=== PATIENT | male | born 1945 | race Caucasian/White ===

== ENCOUNTER 2016-04-13 10:50 | Inpatient (IN) | payer MEDICARE ==
[2016-04-13] VITALS (10 sets, daily range): BP systolic 165–214; BP diastolic 70–91; PULSE 56–60; RESP 14–20; TEMP 99.1–100.3; O2SAT 92–100
[~2016-04-13] VITALS: Ht 180.3 cm; Wt 73.6 kg
[~2016-04-13 10:50] MED LIST: AVOD0.5C PO; CELE200 PO; CELE200C PO; DEGA80IN SQ; DENO120P SQ; HYDR-2768 PO; LISI-515 PO; METF500T PO; OMEP20CA5 PO; STOO100C PO; URSO300C2 PO; VASO10TA8 PO
--- NOTE | 2016-04-13 11:07 | PD ---
HPI Chief Complaint: GI Complaint Time Seen by Provider: 11:06 Travel History International Travel<30 days: No Contact w/Intl Traveler<30days: No Traveled to known affect area: No History of Present Illness HPI 70-year-old male with history of DM, GERD, HTN, prostate cancer, diagnosed 2007 , s/p robotic prostatectomy 2008, currently on palliative Taxotere chemotherapy , followed by Dr. Biggs presents to the ED for evaluation of 5 day history of intractable nausea and vomiting. Patient endorses right lower quadrant abdominal pain at onset, denies abdominal pain on presentation. He went to his oncologist yesterday was given 500ml NS bolus and Zofran which improved his symptoms. However, upon waking today is unable to keep anything down. He estimates 4-5 episodes of nonbloody, nonbilious vomiting. Also complains of subjective fever and chills and mild shortness of breath. He denies chest pain , palpitations, cough, back pain, dysuria. Last bowel movement "3 or 4 days ago , well-formed, nonbloody, small." PFSH Past Medical History Cancer: Yes (PROSTATE) Cardiovascular Problems: No Chemotherapy: Yes Cerebrovascular Accident: Yes Diabetes: Yes (METFORMIN ) Patient Takes Glucophage: Yes Diminished Hearing: No Endocrine: No GERD: Yes Glaucoma: No Hepatitis: No Hiatal Hernia: No Hypertension: Yes Immune Disorder: No Medical other: Yes (ACID REFLUX,HX SHINGLES,AUGUST 2007,URINARY INCONTINENCE) Musculoskeletal: Yes (ARTHRITIS) Neurologic: No Psychiatric: No Reproductive: No Respiratory: No Radiation Therapy: Yes Thyroid Disease: No Influenza Vaccination: No Past Surgical History Abdominal Surgery: No AICD: No Cardiac Surgery: No Ear Surgery: No Endocrine Surgery: No Eye Surgery: No Genitourinary Surgery: Yes (LAPAROSCOPIC REMOVAL OF PROSTATE) Gynecologic Surgery: No Joint Replacement: No Oral Surgery: No Pacemaker: No Prostatectomy: Yes (10/06/07) Thoracic Surgery: No Other Surgery: Yes (05/02 RIGHT INGUINAL HERNIA REPAIR) Social History Alcohol Use: No (2 GLASSES WINE DAY) Tobacco Use: No Substance Use: No Allergies-Medications (Allergen,Severity, Reaction): Coded Allergies: Augmentin (Verified Allergy, Unknown, Nausea/Vomiting, 04/13/16) Reported Meds & Prescriptions Reported Meds & Active Scripts Active Reported Neulasta Inj (Pegfilgrastim) 6 Mg/0.6 Ml Inj 6 Mg SQ ONCE per chemotherapy cycle Cefuroxime (Cefuroxime Axetil) 500 Mg Tab 500 Mg PO BID Allergy Nasal [place] 24 Ho (Fluticasone Propionate (Nasal)) 50 Mcg/Act Spr 2 [place] D3 + K2 Dots 1000-90 Unit-Mcg (Vitamin D & K) 1 Tab Tab 2 Tab Morphine ER (Morphine Sulfate) 30 Mg Tab 30 Mg PO BID Livalo (Pitavastatin) 2 Mg Tab 2 Mg PO DAILY Celebrex (Celecoxib) 200 Mg Cap 200 Mg PO BID Metformin (Metformin HCl) 500 Mg Tab 500 Mg PO BIDPC With meals Firmagon Inj (Degarelix Inj) 80 Mg Inj 80 Mg SQ Q28D Lisinopril 20 Mg Tab 20 Mg PO BID PRN Dutasteride 0.5 Mg Cap 0.5 Mg PO DAILY Review of Systems Except as stated in HPI: all other systems reviewed are Neg Physical Exam Narrative GENERAL: Well-nourished, well-developed ill-appearing white male in no acute distress. SKIN: Warm and moist HEAD: Normocephalic. EYES: No scleral icterus. No injection or drainage. NECK: Supple, trachea midline. No JVD or lymphadenopathy. CARDIOVASCULAR: Regular rate and rhythm without murmurs, gallops, or rubs. 2+ DP and radial pulses bilaterally. RESPIRATORY: Breath sounds clear and equal bilaterally. No accessory muscle use. GASTROINTESTINAL: Abdomen soft, scaphoid, nondistended. Mildly, diffusely tender. No palpable masses. Active bowel sounds. MUSCULOSKELETAL: No cyanosis, or edema. Ambulatory. Moves the extremities spontaneously. BACK: Nontender without obvious deformity. No CVA tenderness. Data Data Last Documented VS Vital Signs Date Time Temp Pulse Resp B/P Pulse Ox O2 Delivery O2 Flow Rate FiO2 04/13/16 14:52 100.0 57 16 183/77 98 Room Air Orders Complete Blood Count With Diff (04/13/16 11:22) Comprehensive Metabolic Panel (04/13/16 11:22) Lipase (04/13/16 11:22) Lactic Acid (04/13/16 11:22) Prothrombin Time / Inr (Pt) (04/13/16 11:22) Act Partial Throm Time (Ptt) (04/13/16 11:22) Urinalysis - C+S If Indicated (04/13/16 11:22) Iv Access Insert/Monitor (04/13/16 11:22) Ecg Monitoring (04/13/16 11:22) Oximetry (04/13/16 11:22) Ondansetron Inj (Zofran Inj) (04/13/16 11:30) Sodium Chlor 0.9% 1000 Ml Inj (Ns 1000 M (04/13/16 11:22) Sodium Chloride 0.9% Flush (Ns Flush) (04/13/16 11:30) Blood Culture (04/13/16 11:22) Acetaminophen (Tylenol) (04/13/16 11:30) Blood Glucose (04/13/16 11:56) Ct Abd/Pel W Iv Contrast(Rout) (04/13/16 12:02) Morphine Inj (Morphine Inj) (04/13/16 12:15) Ondansetron Inj (Zofran Inj) (04/13/16 12:15) Chest, Single Ap (04/13/16 ) Sodium Chlor 0.9% 1000 Ml Inj (Ns 1000 M (04/13/16 12:30) Influenzae A/B Antigen (04/13/16 12:29) Promethazine Inj (Phenergan Inj) (04/13/16 12:30) Lisinopril (Prinivil) (04/13/16 12:30) Iohexol 350 Inj (Omnipaque 350 Inj) (04/13/16 13:21) ^ Straight Catheter (04/13/16 13:23) Vancomycin Inj (Vancomycin Inj) (04/13/16 14:00) Cefepime Inj (Maxipime Inj) (04/13/16 14:00) Admit To Inpatient (04/13/16 ) Code Status (04/13/16 14:46) Vital Signs (Adult) Q4H (04/13/16 14:46) Activity Oob With Assistance (04/13/16 14:46) Diet Regular Basic (04/13/16 Dinner) Sodium Chloride 0.9% Flush (Ns Flush) (04/13/16 15:00) Sodium Chloride 0.9% Flush (Ns Flush) (04/13/16 21:00) Acetaminophen (Tylenol) (04/13/16 15:00) Ondansetron Inj (Zofran Inj) (04/13/16 15:00) Bisacodyl Supp (Dulcolax Supp) (04/13/16 15:00) Magnesium Hydroxide Liq (Milk Of Magnesi (04/13/16 15:00) Electrocardiogram (04/13/16 14:46) Pt Request For Service (04/13/16 14:46) Enoxaparin Inj (Lovenox Inj) (04/13/16 15:00) Naloxone Inj (Narcan Inj) (04/13/16 15:00) Inpatient Certification (04/13/16 ) Celecoxib (Celebrex) (04/13/16 21:00) Lisinopril (Prinivil) (04/13/16 21:00) Metformin (Glucophage) (04/13/16 18:00) Morphine Sr (Oramorph Sr) (04/13/16 21:00) Pravastatin (Pravachol) (04/14/16 09:00) Finasteride (Proscar) (04/14/16 09:00) Vancomycin Inj (Vancomycin Inj) (04/14/16 02:00) Cefepime Inj (Maxipime Inj) (04/14/16 02:00) Consult Medical Oncology (04/13/16 ) Admit Order (Ed Use Only) (04/13/16 14:59) Labs Laboratory Tests Test 04/13/16 04/13/16 11:28 13:20 White Blood Count 31.4 TH/MM3 Red Blood Count 3.75 MIL/MM3 Hemoglobin 10.4 GM/DL Hematocrit 31.5 % Mean Corpuscular Volume 83.9 FL Mean Corpuscular Hemoglobin 27.8 PG Mean Corpuscular Hemoglobin 33.1 % Concent Red Cell Distribution Width 18.6 % Platelet Count 208 TH/MM3 Mean Platelet Volume 8.7 FL Neutrophils (%) (Auto) 92.7 % Lymphocytes (%) (Auto) 2.5 % Monocytes (%) (Auto) 4.6 % Eosinophils (%) (Auto) 0.0 % Basophils (%) (Auto) 0.2 % Neutrophils # (Auto) 29.1 TH/MM3 Lymphocytes # (Auto) 0.8 TH/MM3 Monocytes # (Auto) 1.5 TH/MM3 Eosinophils # (Auto) 0.0 TH/MM3 Basophils # (Auto) 0.1 TH/MM3 CBC Comment AUTO DIFF Differential Total Cells 100 Counted Neutrophils % (Manual) 71 % Band Neutrophils % 14 % Lymphocytes % 5 % Monocytes % 2 % Neutrophils # (Manual) 29.2 TH/MM3 Metamyelocytes 2 % Myelocytes 6 % Differential Comment FINAL DIFF MANUAL Toxic Granulation 1+ Platelet Estimate NORMAL Platelet Morphology Comment NORMAL Prothrombin Time 11.0 SEC Prothromb Time International 1.0 RATIO Ratio Activated Partial 24.3 SEC Thromboplast Time Sodium Level 137 MEQ/L Potassium Level 3.6 MEQ/L Chloride Level 102 MEQ/L Carbon Dioxide Level 24.4 MEQ/L Anion Gap 11 MEQ/L Blood Urea Nitrogen 20 MG/DL Creatinine 0.93 MG/DL Estimat Glomerular Filtration 80 ML/MIN Rate Random Glucose 115 MG/DL Lactic Acid Level 1.4 mmol/L Calcium Level 7.9 MG/DL Total Bilirubin 0.5 MG/DL Aspartate Amino Transf 20 U/L (AST/SGOT) Alanine Aminotransferase 17 U/L (ALT/SGPT) Alkaline Phosphatase 137 U/L Total Protein 6.4 GM/DL Albumin 3.4 GM/DL Lipase 62 U/L Urine Color YELLOW Urine Turbidity CLEAR Urine pH 7.5 Urine Specific [place] 1.014 Urine Protein NEG mg/dL Urine Glucose (UA) NEG mg/dL Urine Ketones 10 mg/dL Urine Occult Blood NEG Urine Nitrite NEG Urine Bilirubin NEG Urine Urobilinogen LESS THAN 2.0 MG/DL Urine Leukocyte Esterase NEG Urine RBC 1 /hpf Urine WBC 1 /hpf Microscopic Urinalysis Comment CULT NOT INDICATED MDM Medical Decision Making Medical Screen Exam Complete: Yes Emergency Medical Condition: Yes Differential Diagnosis Pneumonia versus UTI versus appendicitis versus bowel obstruction versus metastatic cancer versus dehydration versus electrolyte abnormality versus other Narrative Course 70-year-old male with history of DM, GERD, HTN, metastatic prostate cancer, diagnosed 2007, s/p robotic prostatectomy 2008, currently on palliative Taxotere chemotherapy, followed by Dr. Biggs presents to the ED for evaluation of 5 day history of intractable nausea and vomiting. Patient endorses right lower quadrant abdominal pain at onset, denies abdominal pain on presentation. He went to his oncologist yesterday was given 500ml NS bolus and Zofran which improved his symptoms. However, upon waking today is unable to keep anything down. He estimates 4-5 episodes of nonbloody, nonbilious vomiting today. Also complains of subjective fever and chills and mild shortness of breath. He denies chest pain, palpitations, cough, back pain, dysuria. Last bowel movement "3 or 4 days ago, well-formed, nonbloody, small." Vitals reviewed. Temp 99.2, pulse 60, BP 187/72 on presentation. Skull exam reveals an ill-appearing white male in no acute distress. Skin is warm and moist. Chest is clear to auscultation bilaterally. Abdomen soft, scaphoid, nondistended. Mild diffusely, mildly tender. Active bowel sounds. No CVA tenderness. No lower extremity edema. IV was established. Patient was placed on continuous monitoring. He was administered fluid bolus of normal saline, Zofran, morphine. 20 mg lisinopril by mouth administered. CBC: WBC 31.4. 92.7% neutrophils. Hgb 10.4. HCT 31.5. INR: 1.0. CMP: BUN 20, creatinine 0.93. Lactic 1.4 Flu swab: Negative UA: No culture indicated. CXR: multiple sclerotic bone lesions, highly suggestive of metastatic disease. CT of abdomen/pelvis: Multiple sclerotic bone lesions, small liver lesions, unable to be characterized. No acute abnormality, per radiology read. Patient was administered vancomycin and cefepime. Spoke with Dr. Torres who agrees to accept the patient to medical service. Consult placed with oncology. Please see medicine and oncology notes for disposition. Sepsis Criteria SIRS Criteria (2 or more): WBC > 55583, < 4000 or > 10% bands Diagnosis Primary Impression: Prostate cancer metastatic to bone Additional Impressions: Leukocytosis Qualified Code: D72.829 - Leukocytosis, unspecified type Intractable nausea and vomiting Qualified Code: R11.2 - Intractable vomiting with nausea, unspecified vomiting type [place] Ontiveros Apr 13, 2016 11:06
[2016-04-13] MEDS ORDERED: D3 +TAB PO (11:13)
[2016-04-13] MEDS ORDERED: CEFU1TAB20 PO (11:13)
[2016-04-13] MEDS ORDERED: LISI-515 PO (11:13)
[2016-04-13] MEDS ORDERED: FLUT1SPR22 (11:13)
[2016-04-13] MEDS ORDERED: METF500T PO (11:13)
[2016-04-13] MEDS ORDERED: DEGA80IN SQ (11:13)
[2016-04-13] MEDS ORDERED: DUTA1CAP2 PO (11:13)
[2016-04-13] MEDS ORDERED: LIVA2TAB PO (11:13)
[2016-04-13] MEDS ORDERED: MORP1TAB25 PO (11:13)
[2016-04-13] MEDS ORDERED: PEGF6P SQ (11:13)
[2016-04-13] MEDS ORDERED: CELE200C PO (11:13)
[2016-04-13] MEDS ORDERED: SODIUM CHLOR 0.9% 1000 ML INJ 1,000 ML IV SCH (11:22)
[2016-04-13] MEDS ORDERED: SODIUM CHLORIDE 0.9% FLUSH 5 ML FLUSH IVF PRN (11:30)
[2016-04-13] MEDS ORDERED: ONDANSETRON HCL 4 MG/2 ML VIAL IVP ONE (11:30)
[2016-04-13] MEDS ORDERED: ACETAMINOPHEN 325 MG TAB PO ONE (11:30)
[2016-04-13 11:53] LABS: AUTOMATED NEUTROPHIL # 29.1 TH/MM3 (1.8-7.7); BASOPHIL # 0.1 TH/MM3 (0-0.2); BASOPHIL % 0.2 % (0.0-2.0); HEMATOCRIT 31.5 % (39.0-51.0); LYMPH % 2.5 % (9.0-44.0); LYMPHOCYTE # 0.8 TH/MM3 (1.0-4.8); MEAN CELL VOLUME 83.9 FL (80.0-100.0); MEAN CORPUSCULAR HEMOGLOBIN 27.8 PG (27.0-34.0); MEAN CORPUSCULAR HGB CONC 33.1 % (32.0-36.0); MONO % 4.6 % (0.0-8.0); NEUT % 92.7 % (16.0-70.0); PLATELET COUNT 208 TH/MM3 (150-450); RED BLOOD COUNT 3.75 MIL/MM3 (4.50-5.90); RED CELL DISTRIBUTION WIDTH 18.6 % (11.6-17.2); WHITE BLOOD COUNT 31.4 TH/MM3 (4.0-11.0)
[2016-04-13 11:56] LABS: HEMO FLAGS AUTO DIFF
[2016-04-13 12:03] LABS: APTT (PATIENT) 24.3 SEC (24.3-30.1)
[2016-04-13] MEDS ORDERED: ONDANSETRON HCL 4 MG/2 ML VIAL IV PUSH ONE (12:15)
[2016-04-13] MEDS ORDERED: MORPHINE SULFATE 4 MG/ML INJ IV PUSH ONE (12:15)
[2016-04-13 12:26] LABS: ALKALINE PHOSPHATASE 137 U/L (45-117); ALT (GPT) 17 U/L (12-78); ANION GAP 11 MEQ/L (5-15); AST (GOT) 20 U/L (15-37); BANDS 14 % (0-6); BICARBONATE 24.4 MEQ/L (21.0-32.0); BLOOD UREA NITROGEN 20 MG/DL (7-18); CHLORIDE 102 MEQ/L (98-107); GLOMERULAR FILTRATION RATE 80 ML/MIN (>89); METAMYELOCYTES 2 % (0-1); MYELOCYTES 6 % (0-0); NEUTROPHIL # MANUAL DIFF 29.2 TH/MM3 (1.8-7.7); PLATELET ESTIMATE SMEAR NORMAL (NORMAL); PLATELET MORPHOLOGY NORMAL (NORMAL); POLYS (SEG NEUTROPHILS) 71 % (16-70); POTASSIUM 3.6 MEQ/L (3.5-5.1); SCAN/DIFF FINAL DIFF MANUAL; SODIUM (NA) 137 MEQ/L (136-145); TOTAL BILIRUBIN ADULT 0.5 MG/DL (0.2-1.0); TOXIC GRANULATION 1+ (NORMAL); WBC DIFF SAMPLE 100
[2016-04-13] MEDS ORDERED: PROMETHAZINE INJ 25 MG/ML VIAL IM ONE (12:30)
[2016-04-13] MEDS ORDERED: LISINOPRIL 20 MG TAB PO ONE (12:30)
[2016-04-13] MEDS ORDERED: SODIUM CHLOR 0.9% 1000 ML INJ 1,000 ML IV ONE (12:30)
--- NOTE | 2016-04-13 12:45 | PD ---
Physical Exam Narrative I, Dr. Arnett, have reviewed the advance practice practitioner's documentation and am in agreement, met with the patient face to face, made the diagnosis, and the medical decision making was done by me. *My assessment and Findings: Patient is a 70-year-old male with history of prostate cancer, currently on chemotherapy, who comes in complaining of nausea and vomiting. He says this is been going on since . He says on he had some right lower quadrant tenderness, but has not had any abdominal pain since then. He says he is unable to keep anything down. He has had fevers, but denies any specific symptoms such as cough. Exam shows abdomen to be soft and nontender. Lungs are clear to auscultation. Data Data Last Documented VS Vital Signs Date Time Temp Pulse Resp B/P Pulse Ox O2 Delivery O2 Flow Rate FiO2 04/13/16 14:52 100.0 57 16 183/77 98 Room Air Orders Complete Blood Count With Diff (04/13/16 11:22) Comprehensive Metabolic Panel (04/13/16 11:22) Lipase (04/13/16 11:22) Lactic Acid (04/13/16 11:22) Prothrombin Time / Inr (Pt) (04/13/16 11:22) Act Partial Throm Time (Ptt) (04/13/16 11:22) Urinalysis - C+S If Indicated (04/13/16 11:22) Iv Access Insert/Monitor (04/13/16 11:22) Ecg Monitoring (04/13/16 11:22) Oximetry (04/13/16 11:22) Ondansetron Inj (Zofran Inj) (04/13/16 11:30) Sodium Chlor 0.9% 1000 Ml Inj (Ns 1000 M (04/13/16 11:22) Sodium Chloride 0.9% Flush (Ns Flush) (04/13/16 11:30) Blood Culture (04/13/16 11:22) Acetaminophen (Tylenol) (04/13/16 11:30) Blood Glucose (04/13/16 11:56) Ct Abd/Pel W Iv Contrast(Rout) (04/13/16 12:02) Morphine Inj (Morphine Inj) (04/13/16 12:15) Ondansetron Inj (Zofran Inj) (04/13/16 12:15) Chest, Single Ap (04/13/16 ) Sodium Chlor 0.9% 1000 Ml Inj (Ns 1000 M (04/13/16 12:30) Influenzae A/B Antigen (04/13/16 12:29) Promethazine Inj (Phenergan Inj) (04/13/16 12:30) Lisinopril (Prinivil) (04/13/16 12:30) Iohexol 350 Inj (Omnipaque 350 Inj) (04/13/16 13:21) ^ Straight Catheter (04/13/16 13:23) Vancomycin Inj (Vancomycin Inj) (04/13/16 14:00) Cefepime Inj (Maxipime Inj) (04/13/16 14:00) Admit To Inpatient (04/13/16 ) Code Status (04/13/16 14:46) Vital Signs (Adult) Q4H (04/13/16 14:46) Activity Oob With Assistance (04/13/16 14:46) Diet Regular Basic (04/13/16 Dinner) Sodium Chloride 0.9% Flush (Ns Flush) (04/13/16 15:00) Sodium Chloride 0.9% Flush (Ns Flush) (04/13/16 21:00) Acetaminophen (Tylenol) (04/13/16 15:00) Ondansetron Inj (Zofran Inj) (04/13/16 15:00) Bisacodyl Supp (Dulcolax Supp) (04/13/16 15:00) Magnesium Hydroxide Liq (Milk Of Magnesi (04/13/16 15:00) Electrocardiogram (04/13/16 14:46) Pt Request For Service (04/13/16 14:46) Enoxaparin Inj (Lovenox Inj) (04/13/16 15:00) Naloxone Inj (Narcan Inj) (04/13/16 15:00) Inpatient Certification (04/13/16 ) Celecoxib (Celebrex) (04/13/16 21:00) Lisinopril (Prinivil) (04/13/16 21:00) Metformin (Glucophage) (04/13/16 18:00) Morphine Sr (Oramorph Sr) (04/13/16 21:00) Pravastatin (Pravachol) (04/14/16 09:00) Finasteride (Proscar) (04/14/16 09:00) Vancomycin Inj (Vancomycin Inj) (04/14/16 02:00) Cefepime Inj (Maxipime Inj) (04/14/16 02:00) Consult Medical Oncology (04/13/16 ) Admit Order (Ed Use Only) (04/13/16 14:59) Labs Laboratory Tests Test 04/13/16 04/13/16 11:28 13:20 White Blood Count 31.4 TH/MM3 Red Blood Count 3.75 MIL/MM3 Hemoglobin 10.4 GM/DL Hematocrit 31.5 % Mean Corpuscular Volume 83.9 FL Mean Corpuscular Hemoglobin 27.8 PG Mean Corpuscular Hemoglobin 33.1 % Concent Red Cell Distribution Width 18.6 % Platelet Count 208 TH/MM3 Mean Platelet Volume 8.7 FL Neutrophils (%) (Auto) 92.7 % Lymphocytes (%) (Auto) 2.5 % Monocytes (%) (Auto) 4.6 % Eosinophils (%) (Auto) 0.0 % Basophils (%) (Auto) 0.2 % Neutrophils # (Auto) 29.1 TH/MM3 Lymphocytes # (Auto) 0.8 TH/MM3 Monocytes # (Auto) 1.5 TH/MM3 Eosinophils # (Auto) 0.0 TH/MM3 Basophils # (Auto) 0.1 TH/MM3 CBC Comment AUTO DIFF Differential Total Cells 100 Counted Neutrophils % (Manual) 71 % Band Neutrophils % 14 % Lymphocytes % 5 % Monocytes % 2 % Neutrophils # (Manual) 29.2 TH/MM3 Metamyelocytes 2 % Myelocytes 6 % Differential Comment FINAL DIFF MANUAL Toxic Granulation 1+ Platelet Estimate NORMAL Platelet Morphology Comment NORMAL Prothrombin Time 11.0 SEC Prothromb Time International 1.0 RATIO Ratio Activated Partial 24.3 SEC Thromboplast Time Sodium Level 137 MEQ/L Potassium Level 3.6 MEQ/L Chloride Level 102 MEQ/L Carbon Dioxide Level 24.4 MEQ/L Anion Gap 11 MEQ/L Blood Urea Nitrogen 20 MG/DL Creatinine 0.93 MG/DL Estimat Glomerular Filtration 80 ML/MIN Rate Random Glucose 115 MG/DL Lactic Acid Level 1.4 mmol/L Calcium Level 7.9 MG/DL Total Bilirubin 0.5 MG/DL Aspartate Amino Transf 20 U/L (AST/SGOT) Alanine Aminotransferase 17 U/L (ALT/SGPT) Alkaline Phosphatase 137 U/L Total Protein 6.4 GM/DL Albumin 3.4 GM/DL Lipase 62 U/L Urine Color YELLOW Urine Turbidity CLEAR Urine pH 7.5 Urine Specific [place] 1.014 Urine Protein NEG mg/dL Urine Glucose (UA) NEG mg/dL Urine Ketones 10 mg/dL Urine Occult Blood NEG Urine Nitrite NEG Urine Bilirubin NEG Urine Urobilinogen LESS THAN 2.0 MG/DL Urine Leukocyte Esterase NEG Urine RBC 1 /hpf Urine WBC 1 /hpf Microscopic Urinalysis Comment CULT NOT INDICATED [facility] [place] Supervised Visit with ROBERT: Yes Narrative Course Labs show an elevated WBC count. Patient covered with broad spectrum antibiotics. CXR and urinalysis negative for infective process. CT abd/pelvis show no acute abnormalities. Patient admitted for further management. Admitting Information Admitting Physician Requests: it Maria Elena Arnett MD Apr 13, 2016 12:45
[2016-04-13] MEDS ORDERED: IOHEXOL 350 MG/ML 10 ML VIAL (for RAD DIAG) IV ONE (13:21)
--- NOTE | 2016-04-13 13:39 | RADRPT ---
EXAM DATE/TIME: 04/13/2016 13:00 [facility] COMPARISON: No previous studies available for comparison. INDICATIONS : Abdomen pain, nausea. IV CONTRAST: 70 cc Omnipaque 350 (iohexol) IV ORAL CONTRAST: No oral contrast ingested. RADIATION DOSE: 13.55 CTDIvol (mGy) MEDICAL HISTORY : Cerebrovascular disease. Hypertension. Diabetes mellitus type 2.prostate cancer SURGICAL HISTORY : Inguinal hernia repair. ENCOUNTER: Initial ACUITY: 1 day PAIN SCALE: 5/10 LOCATION: abdomen TECHNIQUE: Volumetric scanning of the abdomen and pelvis was performed. Using automated exposure control and ad justment of the mA and/or kV according to patient size, radiation dose was kept as low as reasonably achievable to obtain optimal diagnostic quality images. FINDINGS: LOWER LUNGS: The visualized lower lungs are clear. LIVER: Homogeneous density with approximately 4 low-density lesions that are too small to characterize and m easure up to 5 mm. There is no dilation of the biliary tree. No calcified gallstones. SPLEEN: Spleen measures 13.2 cm. No focal lesion is visualized. PANCREAS: Within normal limits. KIDNEYS: Normal in size and shape. There is no mass, stone or hydronephrosis. ADRENAL GLANDS: Within normal limits. VASCULAR: There is no aortic aneurysm. There is moderate atherosclerotic disease. BOWEL/MESENTERY: The stomach, small bowel, and colon demonstrate no acute abnormality. There is no free intraperitone al air or fluid. Appendix is normal. ABDOMINAL WALL: There is a fat containing umbilical hernia. RETROPERITONEUM: There is no lymphadenopathy. BLADDER: No wall thickening or mass. REPRODUCTIVE: Prostate gland is surgically absent. INGUINAL: There is no lymphadenopathy or hernia. MUSCULOSKELETAL: There are innumerable as chronic lesions throughout the visualized ribs, vertebral bodies, and pelvic bones. CONCLUSION: 1. There are innumerable sclerotic lesions throughout the visualized bones diagnostic of metastatic d isease. 2. No other acute finding is identified. There are least 4 low-density lesions in the liver that are too small to characterize. Ravi Garvin MD on April 13, 2016 at 13:34 Board Certified Radiologist. This report was verified electronically.
--- NOTE | 2016-04-13 13:47 | RADRPT ---
EXAM DATE/TIME: 04/13/2016 12:35 [facility] COMPARISON: CT ABDOMEN & PELVIS W CONTRAST, April 13, 2016, 13:00. INDICATIONS : Patient complains of vomiting and shortness of breath. MEDICAL HISTORY : Carcinoma, prostatic. SURGICAL HISTORY : Infusaport. ENCOUNTER: Initial ACUITY: 1 day PAIN SCORE: 0/10 LOCATION: chest FINDINGS: Portable AP view of the chest demonstrates a normal-sized cardiac silhouette. Right chest wall Infuse -a-Port is present with distal tip in the screw vena cava. No effusion, consolidation, or pneumothora x is visualized. There are areas of increased density associated with the ribs bilaterally. There is degenerative change at the glenohumeral joints bilaterally. CONCLUSION: 1. No acute cardiopulmonary abnormality is identified. 2. Multiple sclerotic bone lesions in the ribs bilaterally strongly suggestive of metastatic disease from the patient's prostate cancer. Ravi Garvin MD on April 13, 2016 at 13:44 Board Certified Radiologist. This report was verified electronically.
[2016-04-13 13:58] LABS: BLOOD, URINE NEG (NEG); COMMENT (UR) CULT NOT INDICATED; CULTURE IF INDICATED CULT NOT INDICATED; GLUCOSE,URINE NEG (NEG); KETONE, URINE 10 mg/dL (NEG); NITRITE,URINE NEG (NEG); PH, URINE 7.5 (5.0-8.5); URINE COLOR YELLOW (YELLW/STRAW)
[2016-04-13] MEDS ORDERED: VANCOMYCIN INJ 1,000 MG in SODIUM CHLOR 0.9% 250 ML INJ 250 ML IV ONE (14:00)
[2016-04-13] MEDS ORDERED: CEFEPIME INJ 2,000 MG in SODIUM CHLORIDE 0.9% INJ 100 ML IV ONE (14:00)
[2016-04-13] MEDS ORDERED: SODIUM CHLORIDE 0.9% FLUSH 5 ML FLUSH FLUSH PRN (15:00)
[2016-04-13] MEDS ORDERED: ACETAMINOPHEN 325 MG TAB PO PRN ×2 (15:00→22:00)
[2016-04-13] MEDS ORDERED: BISACODYL 10 MG SUPP PR PRN (15:00)
[2016-04-13] MEDS ORDERED: NALOXONE HCL 0.4 MG/ML AMP IV PRN (15:00)
[2016-04-13] MEDS: ENOXAPARIN SODIUM 30 MG/0.3 ML SYRINGE SQ SCH (15:19)
[2016-04-13] MEDS ORDERED: metFORMIN HCL 500 MG TAB PO SCH (18:00)
[2016-04-13] MEDS ORDERED: cloNIDine HCL 0.2 MG TAB PO PRN (18:15)
[2016-04-13] MEDS ORDERED: ENALAPRILAT 1.25 MG/ML VIAL IV PRN (18:15)
[2016-04-13] MEDS: NIFEdipine 60 MG SUSTAINED RELEASE TAB PO SCH (18:59)
[2016-04-13] MEDS ORDERED: DEXTROSE 50% IN WATER 50 ML VIAL(D50) IV PUSH PRN (19:00)
[2016-04-13] MEDS ORDERED: GLUCAGON 1 MG/ML VIAL OTHER PRN (19:00)
[2016-04-13] MEDS: MORPHINE SULFATE 30 MG CONTROLLED RELEASE TAB PO SCH (20:04)
[2016-04-13] MEDS: CELECOXIB 200 MG CAP PO SCH (20:04)
[2016-04-13] MEDS: LISINOPRIL 20 MG TAB PO SCH (20:04)
[2016-04-13] MEDS: SODIUM CHLORIDE 0.9% FLUSH 5 ML FLUSH FLUSH SCH (20:05)
[2016-04-13] MEDS: INSULIN ASPART SUPPLEMENTAL SCALE SQ SCH (20:05)
--- NOTE | 2016-04-13 21:43 | HHI.HP ---
HPI Service [facility] Hospitalists Primary Care Physician Yareli Resendiz MD Admission Diagnosis metastatic prostate Ca,intractable nausea and vomiting, leukocytosis Chief Complaint: fever Travel History International Travel<30 Days: No Contact w/Intl Traveler <30 Da: No Traveled to Known Affected Are: No Sepsis Criteria Sepsis Criteria (SIRS+source): Infect source susp/known History of Present Illness 70-year-old male with history of DM, GERD, HTN, prostate cancer, diagnosed 2007 , s/p robotic prostatectomy 2008, currently on palliative Taxotere chemotherapy , followed by Dr. Biggs presents to the ED for evaluation of 5 day history of intractable nausea and vomiting. Patient endorses right lower quadrant abdominal pain at onset, denies abdominal pain on presentation. He went to his oncologist yesterday was given 500ml NS bolus and Zofran which improved his symptoms. However, upon waking today is unable to keep anything down. He estimates 4-5 episodes of nonbloody, nonbilious vomiting. Also complains of subjective fever and chills and mild shortness of breath. He denies chest pain , palpitations, cough, back pain, dysuria. Last bowel movement "3 or 4 days ago , well-formed, nonbloody, small." Review of Systems Constitutional: DENIES: Diaphoretic episodes, Fatigue, Fever, Weight gain, Weight loss, Chills, Dizziness, Change in appetite, Night Sweats Endocrine: DENIES: Heat/cold intolerance, Polydipsia, Polyuria, Polyphagia Eyes: DENIES: Blurred vision, Diplopia, Eye inflammation, Eye pain, Vision loss , Photosensitivity, Double Vision Ears, nose, mouth, throat: DENIES: Tinnitus, Hearing loss, Vertigo, Nasal discharge, Oral lesions, Throat pain, Hoarseness, Ear Pain, Running Nose, Epistaxis, Sinus Pain, Toothache, Odynophagia Respiratory: DENIES: Apneas, Cough, Snoring, Wheezing, Hemoptysis, Sputum production, Shortness of breath Cardiovascular: DENIES: Chest pain, Palpitations, Syncope, Dyspnea on Exertion , PND, Lower Extremity Edema, Orthopnea, Claudication Gastrointestinal: COMPLAINS OF: Nausea, Vomiting, DENIES: Abdominal pain, Black stools, Bloody stools, BRB per rectum, Constipation, Diarrhea, GERD, Reflux, Difficulty Swallowing, Anorexia, See HPI Genitourinary: DENIES: Urinary frequency, Urinary incontinence, Urgency, Hematuria, Dysuria, Nocturia Musculoskeletal: DENIES: Joint pain, Muscle aches, Stiffness, Joint Swelling, Back pain, Neck pain Integumentary: DENIES: Abnormal pigmentation, Nail changes, Pruritus, Rash Hematologic/lymphatic: DENIES: Bruising, Lymphadenopathy Immunologic/allergic: DENIES: Eczema, Urticaria Neurologic: DENIES: Abnormal gait, Headache, Localized weakness, Paresthesias, Seizures, Speech Problems, Tremor, Poor Balance Psychiatric: DENIES: Anxiety, Confusion, Mood changes, Depression, Hallucinations, Agitation, Suicidal Ideation, Homicidal Ideation, Delusions, History of Bipolar, History of Schizophrenia Past Family Social History Past Medical History 1) prostate cancer diagnosed in 2007 - Status post robotic prostatectomy - Patient follows with 2) type 2 diabetes 3) osteoarthritis 4) GERD 5) hemorrhoids 6) hypertension Past Surgical History 1) bilateral inguinal hernia repair 2) colonoscopy in 2011 3) prostate resection Reported Medications Reported Meds & Active Scripts Active Reported Neulasta Inj (Pegfilgrastim) 6 Mg/0.6 Ml Inj 6 Mg SQ ONCE per chemotherapy cycle Cefuroxime (Cefuroxime Axetil) 500 Mg Tab 500 Mg PO BID Allergy Nasal Novinger 24 Ho (Fluticasone Propionate (Nasal)) 50 Mcg/Act Spr 2 Novinger D3 + K2 Dots 1000-90 Unit-Mcg (Vitamin D & K) 1 Tab Tab 2 Tab Morphine ER (Morphine Sulfate) 30 Mg Tab 30 Mg PO BID Livalo (Pitavastatin) 2 Mg Tab 2 Mg PO DAILY Celebrex (Celecoxib) 200 Mg Cap 200 Mg PO BID Metformin (Metformin HCl) 500 Mg Tab 500 Mg PO BIDPC With meals Firmagon Inj (Degarelix Inj) 80 Mg Inj 80 Mg SQ Q28D Lisinopril 20 Mg Tab 20 Mg PO BID PRN Dutasteride 0.5 Mg Cap 0.5 Mg PO DAILY Allergies: Coded Allergies: Augmentin (Verified Allergy, Unknown, Nausea/Vomiting, 04/13/16) Family History Non-contributory Social History - Patient denies tobacco use -2 glasses of wine daily - patient denies illicit street drugs Physical Exam Vital Signs Vital Signs Date Time Temp Pulse Resp B/P Pulse Ox O2 Delivery O2 Flow Rate FiO2 04/13/16 20:00 100.3 60 20 165/70 94 04/13/16 16:33 56 14 188/89 95 Room Air 04/13/16 14:52 100.0 57 16 183/77 98 Room Air 04/13/16 13:35 99.3 04/13/16 13:24 100.1 57 20 212/91 97 Room Air 04/13/16 13:20 56 16 214/88 98 Room Air 04/13/16 12:20 100.1 57 16 212/91 97 Room Air 04/13/16 11:28 100 Room Air 04/13/16 10:56 99.1 56 18 185/84 99 04/13/16 10:52 99.2 60 20 187/72 92 Room Air Physical Exam GENERAL: This is a well-nourished, well-developed patient, in no apparent distress. SKIN: No rashes, ecchymoses or lesions. Cool and dry. HEAD: Atraumatic. Normocephalic. No temporal or scalp tenderness. EYES: Pupils equal round and reactive. Extraocular motions intact. No scleral icterus. No injection or drainage. ENT: Nose without bleeding, purulent drainage or septal hematoma. Throat without erythema, tonsillar hypertrophy or exudate. Uvula midline. Airway patent. NECK: Trachea midline. No JVD or lymphadenopathy. Supple, nontender, no meningeal signs. CARDIOVASCULAR: Regular rate and rhythm without murmurs, gallops, or rubs. RESPIRATORY: Clear to auscultation. Breath sounds equal bilaterally. No wheezes , rales, or rhonchi. GASTROINTESTINAL: Abdomen soft, non-tender, nondistended. No hepato-splenomegaly , or palpable masses. No guarding. MUSCULOSKELETAL: Extremities without clubbing, cyanosis, or edema. No joint tenderness, effusion, or edema noted. No calf tenderness. Negative Homans sign bilaterally. NEUROLOGICAL: Awake and alert. Cranial nerves II through XII intact. Motor and sensory grossly within normal limits. Five out of 5 muscle strength in all muscle groups. Normal speech. Laboratory Laboratory Tests Test 04/13/16 04/13/16 11:28 13:20 White Blood Count 31.4 Red Blood Count 3.75 Hemoglobin 10.4 Hematocrit 31.5 Mean Corpuscular Volume 83.9 Mean Corpuscular Hemoglobin 27.8 Mean Corpuscular Hemoglobin 33.1 Concent Red Cell Distribution Width 18.6 Platelet Count 208 Mean Platelet Volume 8.7 Neutrophils (%) (Auto) 92.7 Lymphocytes (%) (Auto) 2.5 Monocytes (%) (Auto) 4.6 Eosinophils (%) (Auto) 0.0 Basophils (%) (Auto) 0.2 Neutrophils # (Auto) 29.1 Lymphocytes # (Auto) 0.8 Monocytes # (Auto) 1.5 Eosinophils # (Auto) 0.0 Basophils # (Auto) 0.1 CBC Comment AUTO DIFF Differential Total Cells 100 Counted Neutrophils % (Manual) 71 Band Neutrophils % 14 Lymphocytes % 5 Monocytes % 2 Neutrophils # (Manual) 29.2 Metamyelocytes 2 Myelocytes 6 Differential Comment FINAL DIFF MANUAL Toxic Granulation 1+ Platelet Estimate NORMAL Platelet Morphology Comment NORMAL Prothrombin Time 11.0 Prothromb Time International 1.0 Ratio Activated Partial 24.3 Thromboplast Time Sodium Level 137 Potassium Level 3.6 Chloride Level 102 Carbon Dioxide Level 24.4 Anion Gap 11 Blood Urea Nitrogen 20 Creatinine 0.93 Estimat Glomerular Filtration 80 Rate Random Glucose 115 Lactic Acid Level 1.4 Calcium Level 7.9 Total Bilirubin 0.5 Aspartate Amino Transf 20 (AST/SGOT) Alanine Aminotransferase 17 (ALT/SGPT) Alkaline Phosphatase 137 Total Protein 6.4 Albumin 3.4 Lipase 62 Urine Color YELLOW Urine Turbidity CLEAR Urine pH 7.5 Urine Specific [place] 1.014 Urine Protein NEG Urine Glucose (UA) NEG Urine Ketones 10 Urine Occult Blood NEG Urine Nitrite NEG Urine Bilirubin NEG Urine Urobilinogen LESS THAN 2.0 Urine Leukocyte Esterase NEG Urine RBC 1 Urine WBC 1 Microscopic Urinalysis Comment CULT NOT INDICATED Date/Time Procedure Status Source Growth 04/13/16 12:44 Influenza Types A,B Antigen (GEE) - Final Complete Nasal Washing NEGATIVE FOR FLU A AND B ANTIGEN.... 04/13/16 11:28 Aerobic Blood Culture Received Blood Line Pending 04/13/16 11:28 Anaerobic Blood Culture Received Blood Line Pending Result Diagram: 04/13/16 1128 04/13/16 1128 Imaging Last Impressions Abdomen/Pelvis CT 04/13/16 1202 Signed Impressions: Service Date/Time: Wednesday, April 13, 2016 13:00 - CONCLUSION: 1. There are innumerable sclerotic lesions throughout the visualized bones diagnostic of metastatic disease. 2. No other acute finding is identified. There are least 4 low-density lesions in the liver that are too small to characterize. Ravi Garvin MD Chest X-Ray 04/13/16 0000 Signed Impressions: Service Date/Time: Wednesday, April 13, 2016 12:35 - CONCLUSION: 1. No acute cardiopulmonary abnormality is identified. 2. Multiple sclerotic bone lesions in the ribs bilaterally strongly suggestive of metastatic disease from the patient's prostate cancer. Ravi Garvin MD Septic Shock Reassessment Heart: Regular rate and rhythm Lungs: Clear Skin: Warm Peripheral Pulses: Bounding Right Radial Bounding Left Radial Bounding Right Popliteal Bounding Left Popliteal Bounding Right Dorsalis Pedis Bounding Left Dorsalis Pedis Bounding Right Posterior Tibial Bounding Left Posterior Tibial Capillary Refill: Brisk Assessment and Plan Problem List: (1) Intractable nausea and vomiting Status: Acute Plan: - IV zofran - IVFs - pre-reanal azotemia now resolved - observe (2) Leukocytosis Status: Acute Plan: - afebrile since 8PM 04/13 - influenza negative - blood cultures (04/13/16) --> NO growth to date - continue vancomycin and cefepime for now. (3) Prostate cancer metastatic to bone Status: Acute Plan: - Pt follows with Dr. Das. Physician Certification 2 Midnight Certification Type: Admission for Inpatient Services Order for Inpatient Services The services are ordered in accordance with Medicare regulations or non- Medicare payer requirements, as applicable. In the case of services not specified as inpatient-only, they are appropriately provided as inpatient services in accordance with the 2-midnight benchmark. Estimated LOS (days): 3 3 days is the estimated time the patient will need to remain in the hospital, assuming treatment plan goals are met and no additional complications. Post-Hospital Plan: Not yet determined Problem Qualifiers (1) Intractable nausea and vomiting: Qualified Code: R11.2 - Intractable vomiting with nausea, unspecified vomiting type (2) Leukocytosis: Qualified Code: D72.829 - Leukocytosis, unspecified type Virgilio Torres DO Apr 13, 2016 21:43
[2016-04-13] MEDS: 1/2 NS + KCL 20 MEQ INJ 1,000 ML IV SCH (22:37)
[2016-04-14] VITALS: BP 152/71; PULSE 62; RESP 20; TEMP 98.8; O2SAT 96
[2016-04-14] MEDS: CEFEPIME INJ 1,000 MG in SODIUM CHLORIDE 0.9% INJ 100 ML IV SCH ×2 (01:10→10:54)
[2016-04-14] MEDS: ONDANSETRON HCL 4 MG/2 ML VIAL IVP PRN ×4 (02:24→23:05)
[2016-04-14] MEDS: VANCOMYCIN INJ 1,000 MG in SODIUM CHLOR 0.9% 250 ML INJ 250 ML IV SCH ×2 (02:24→14:52)
[2016-04-14 04:00] VITALS: BP 155/69; PULSE 61; RESP 20; TEMP 98.5; O2SAT 96
[2016-04-14 06:20] LABS: AUTOMATED NEUTROPHIL # 29.9 TH/MM3 (1.8-7.7); BASOPHIL # 0.1 TH/MM3 (0-0.2); BASOPHIL % 0.2 % (0.0-2.0); HEMATOCRIT 32.4 % (39.0-51.0); LYMPH % 3.4 % (9.0-44.0); LYMPHOCYTE # 1.1 TH/MM3 (1.0-4.8); MEAN CELL VOLUME 84.3 FL (80.0-100.0); MEAN CORPUSCULAR HEMOGLOBIN 27.7 PG (27.0-34.0); MEAN CORPUSCULAR HGB CONC 32.9 % (32.0-36.0); MONO % 4.8 % (0.0-8.0); NEUT % 91.6 % (16.0-70.0); PLATELET COUNT 177 TH/MM3 (150-450); RED BLOOD COUNT 3.84 MIL/MM3 (4.50-5.90); RED CELL DISTRIBUTION WIDTH 18.4 % (11.6-17.2); WHITE BLOOD COUNT 32.7 TH/MM3 (4.0-11.0)
[2016-04-14 06:27] LABS: HEMO FLAGS AUTO DIFF
[2016-04-14 06:30] LABS: MAGNESIUM 2.1 MG/DL (1.5-2.5); POTASSIUM 3.5 MEQ/L (3.5-5.1)
[2016-04-14] MEDS: INSULIN ASPART SUPPLEMENTAL SCALE SQ SCH ×4 (06:48→23:09)
[2016-04-14] MEDS: 1/2 NS + KCL 20 MEQ INJ 1,000 ML IV SCH ×2 (07:54→15:03)
[2016-04-14] MEDS: PRAVASTATIN SOD 40 MG TAB PO SCH (07:56)
[2016-04-14] MEDS: SODIUM CHLORIDE 0.9% FLUSH 5 ML FLUSH FLUSH SCH ×2 (07:56→23:08)
[2016-04-14] MEDS: LISINOPRIL 20 MG TAB PO SCH ×2 (07:56→23:06)
[2016-04-14] MEDS: MORPHINE SULFATE 30 MG CONTROLLED RELEASE TAB PO SCH ×2 (07:56→23:06)
[2016-04-14] MEDS: NIFEdipine 60 MG SUSTAINED RELEASE TAB PO SCH (07:57)
[2016-04-14] MEDS: FINASTERIDE 5 MG TAB PO SCH (07:57)
[2016-04-14] MEDS: CELECOXIB 200 MG CAP PO SCH ×2 (07:57→23:06)
[2016-04-14] MEDS: MAGNESIUM HYDROXIDE SUSP 30 ML CUP PO PRN (07:57)
[2016-04-14 08:00] VITALS: BP 154/83; PULSE 62; RESP 18; TEMP 98.4; O2SAT 96
[2016-04-14 09:04] LABS: BANDS 19 % (0-6); METAMYELOCYTES 2 % (0-1); MYELOCYTES 4 % (0-0); NEUTROPHIL # MANUAL DIFF 29.1 TH/MM3 (1.8-7.7); POLYS (SEG NEUTROPHILS) 64 % (16-70); WBC DIFF SAMPLE 100
[2016-04-14 09:05] LABS: OVALOCYTES 1+ (NORMAL); PLATELET ESTIMATE SMEAR NORMAL (NORMAL); PLATELET MORPHOLOGY NORMAL (NORMAL); SCAN/DIFF FINAL DIFF MANUAL; TOXIC GRANULATION 1+ (NORMAL)
[2016-04-14 12:00] VITALS: BP 128/64; PULSE 64; RESP 18; TEMP 99; O2SAT 96
[2016-04-14] MEDS: ENOXAPARIN SODIUM 30 MG/0.3 ML SYRINGE SQ SCH (14:52)
[2016-04-14] MEDS: ASPIRIN EC 81 MG TABEC PO SCH (16:10)
[2016-04-14 16:14] VITALS: BP 133/75; PULSE 70; RESP 18; TEMP 98; O2SAT 96
[2016-04-14 19:00] VITALS: BP 126/76; PULSE 69; RESP 16; TEMP 98.7; O2SAT 96
[2016-04-15] VITALS: BP 164/76; PULSE 66; RESP 17; TEMP 97.8; O2SAT 95
[2016-04-15] MEDS: VANCOMYCIN INJ 1,000 MG in SODIUM CHLOR 0.9% 250 ML INJ 250 ML IV SCH ×2 (02:14→13:19)
[2016-04-15] MEDS: 1/2 NS + KCL 20 MEQ INJ 1,000 ML IV SCH (02:14)
[2016-04-15] MEDS: CEFEPIME INJ 1,000 MG in SODIUM CHLORIDE 0.9% INJ 100 ML IV SCH ×2 (02:15→13:19)
--- NOTE | 2016-04-15 05:38 | MB ---
cc: JASPER ANDERSON MD DATE OF CONSULTATION 04/14/2016 REASON FOR CONSULTATION Patient with a diagnosis of Stage IV prostatic carcinoma who is currently getting chemotherapy. He presents with intractable nausea and vomiting and dehydration. CHIEF COMPLAINT Nausea, dehydration, weakness. HISTORY OF PRESENT ILLNESS Mr. Pearson is a 70-year-old male who has a history of Stage IV prostatic adenocarcinoma. He is currently getting single-agent Taxotere chemotherapy. He was originally diagnosed with prostate cancer in 2007 and he underwent robotic prostatectomy. The Monica score was 3.3 = 6. This was a Stage pT3a Nx M0 disease. Subsequently he had increase in his PSA levels and he underwent radiation treatments. He had biochemical relapsed in 2012 and was started on Lupron. In 2013 he had metastatic disease to the bone. He was started Casodex and he was switched to Firmagon. Then he was started on Zytiga as well as Xgeva. He has also been treated with a transdermal estrogen. He has also received treatment with Xtandi. The patient saw Dr. Biggs last week in his clinic. Recommendations were to continue Taxol chemotherapy. Then he presented to the infusion clinic with nausea and vomiting and was given IV antibiotics and hydration. Now he presented to the emergency department with persistent nausea, vomiting, generalized weakness, subjective fevers, chills and constipation. He has not had a bowel movement with three to four days. REVIEW OF SYSTEMS Completed which is negative except as described in the HPI. PAST MEDICAL HISTORY 1. Stage IV prostatic adenocarcinoma. 2. Type 2 diabetes. 3. Osteoarthritis. 4. GERD. 5. Hemorrhoids. 6. Hypertension. PAST SURGICAL HISTORY 1. Prostatectomy. 2. Bilateral inguinal hernia repair. 3. Colonoscopy in 2011. 4. Prostate resection. MEDICATIONS 1. Cephalexin 500 mg one tablet p.o. b.i.d. 2. Fluticasone. 3. Morphine extended-release 30 mg p.o. b.i.d. 4. Pitavastatin 2 mg one tablet p.o. daily. 5. Celecoxib 200 mg one tablet p.o. b.i.d. 6. Metformin 500 mg p.o. b.i.d. 7. Firmagon 80 mg injection 220 per day. 8. Lisinopril 20 mg p.o. b.i.d. p.r.n. 9. Dutasteride 0.5 mg one tablet p.o. daily ALLERGIES AUGMENTIN. FAMILY HISTORY Noncontributory. SOCIAL HISTORY No tobacco abuse. He drinks two glass of wine. No illicit drug use. PHYSICAL EXAMINATION VITAL SIGNS: Blood pressure is 128/64, pulse is in the 60s, temperature is 99, pulse ox is 96. GENERAL: No apparent distress. HEENT: Pupils are equal, round, reactive to light. EOMI. No oral thrush. No oral lesions. NECK: Supple. No JVD, no bruits. No lymphadenopathy. CHEST: Clear to auscultation bilaterally. CARDIAC: S1-S2. Regular rate and rhythm. ABDOMEN: Soft, nontender, nondistended. Bowel sounds are present. EXTREMITIES: Without any edema, erythema or cyanosis. SKIN: Without any petechiae, lesion or bruises. NEURO: No focal deficits. PSYCHIATRIC: Mood and affect is appropriate. LABORATORY DATA WBC 32.7, hemoglobin 10.6, platelet count of 177. Serum chemistries show a sodium of 137, potassium 3.5, CO2 26, BUN 14, creatinine 0.71, GFR is 109, calcium is 7.5, AST 20, ALT 70, alk phos is 137, total protein is 6.4, albumin is 3.45 Lipase is 62. Coags show PT of 11, INR is 1, PTT 24.3. IMAGING STUDIES CT of the abdomen and pelvis shows innumerable sclerotic lesions throughout the bone consistent with a history of metastatic disease to the bone. Four very small liver lesions which are nonspecific. ASSESSMENT AND PLAN This is a 70-year-old male with a history of Stage IV prostatic adenocarcinoma who has undergone multiple lines of treatment. He is currently receiving single-agent treatment with Taxotere. He presents with intractable nausea and vomiting and subjective fevers. 1. Intractable nausea and vomiting secondary to chemotherapy. Scheduled IV Zofran, p.r.n. Compazine. Continue IV fluids. Further recommendations will be made based on the clinical course. 2. Leukocytosis partially due to recent Neulasta injection. We need to rule out any underlying infection. Blood cultures show no growth thus far. Chest x-ray does not show any acute findings of pneumonia. 3. Stage IV prostatic adenocarcinoma with metastasis to the bone. Patient would follow up with Dr. Biggs after discharge. 4. Anemia: This is chronic. However, we will obtain anemia studies. Thank you for allowing me to participate in the care of this patient. I will continue to follow this patient along. Dr. Biggs will return on Friday to assume care of this patient. MD SALLY Ladd/TERESE /3:47 PM /5:17 AM
[2016-04-15] MEDS: ONDANSETRON HCL 4 MG/2 ML VIAL IVP PRN ×2 (06:24→13:18)
[2016-04-15 06:52] LABS: AUTOMATED NEUTROPHIL # 19.4 TH/MM3 (1.8-7.7); BASOPHIL % 0.2 % (0.0-2.0); HEMATOCRIT 33.8 % (39.0-51.0); LYMPH % 4.8 % (9.0-44.0); MEAN CELL VOLUME 84.6 FL (80.0-100.0); MEAN CORPUSCULAR HEMOGLOBIN 27.5 PG (27.0-34.0); MEAN CORPUSCULAR HGB CONC 32.5 % (32.0-36.0); PLATELET COUNT 165 TH/MM3 (150-450); RED BLOOD COUNT 3.99 MIL/MM3 (4.50-5.90); RED CELL DISTRIBUTION WIDTH 17.6 % (11.6-17.2); WHITE BLOOD COUNT 21.8 TH/MM3 (4.0-11.0)
[2016-04-15 06:54] LABS: HEMO FLAGS AUTO DIFF
[2016-04-15] MEDS: INSULIN ASPART SUPPLEMENTAL SCALE SQ SCH ×4 (07:00→21:00)
[2016-04-15 08:00] VITALS: BP 144/69; PULSE 63; RESP 18; TEMP 99.1; O2SAT 94
[2016-04-15 08:34] LABS: BANDS 10 % (0-6); METAMYELOCYTES 2 % (0-1); NEUTROPHIL # MANUAL DIFF 20.3 TH/MM3 (1.8-7.7); POLYS (SEG NEUTROPHILS) 81 % (16-70); WBC DIFF SAMPLE 100
[2016-04-15 08:35] LABS: PLATELET ESTIMATE SMEAR NORMAL (NORMAL); PLATELET MORPHOLOGY NORMAL (NORMAL); SCAN/DIFF FINAL DIFF MANUAL
[2016-04-15] MEDS: FINASTERIDE 5 MG TAB PO SCH (09:14)
[2016-04-15] MEDS: CELECOXIB 200 MG CAP PO SCH ×2 (09:14→20:37)
[2016-04-15] MEDS: NIFEdipine 60 MG SUSTAINED RELEASE TAB PO SCH (09:15)
[2016-04-15] MEDS: PRAVASTATIN SOD 40 MG TAB PO SCH (09:15)
[2016-04-15] MEDS: LISINOPRIL 20 MG TAB PO SCH ×2 (09:15→20:37)
[2016-04-15] MEDS: MAGNESIUM HYDROXIDE SUSP 30 ML CUP PO PRN (09:16)
[2016-04-15] MEDS: MORPHINE SULFATE 30 MG CONTROLLED RELEASE TAB PO SCH (09:16)
[2016-04-15] MEDS: ASPIRIN EC 81 MG TABEC PO SCH (09:19)
[2016-04-15] MEDS: SODIUM CHLORIDE 0.9% FLUSH 5 ML FLUSH FLUSH SCH ×2 (09:23→20:38)
--- NOTE | 2016-04-15 10:48 | PD.ONC.PN ---
Subjective Subjective Remarks Afebrile overnight. Patient resting comfortably. He states he still has some nausea but no vomiting. He has not had a bowel movement in 3 days. He would like to try a laxative. He has not been eating much and plans to try to eat breakfast today. He wants to stop taking the oramorph as he feels he no longer has pain. Objective Data Date Time Temp Pulse Resp B/P Pulse Ox O2 Delivery O2 Flow Rate FiO2 04/15/16 08:00 99.1 63 18 144/69 94 04/15/16 00:00 97.8 66 17 164/76 95 04/14/16 19:00 98.7 69 16 126/76 96 04/14/16 16:14 98.0 70 18 133/75 96 04/14/16 12:00 99.0 64 18 128/64 96 Result Diagram: 04/15/16 0620 04/14/16 0600 Laboratory Results Laboratory Tests Test 04/15/16 06:20 White Blood Count 21.8 TH/MM3 Red Blood Count 3.99 MIL/MM3 Hemoglobin 11.0 GM/DL Hematocrit 33.8 % Mean Corpuscular Volume 84.6 FL Mean Corpuscular Hemoglobin 27.5 PG Mean Corpuscular Hemoglobin 32.5 % Concent Red Cell Distribution Width 17.6 % Platelet Count 165 TH/MM3 Mean Platelet Volume 8.2 FL Neutrophils (%) (Auto) 89.0 % Lymphocytes (%) (Auto) 4.8 % Monocytes (%) (Auto) 6.0 % Eosinophils (%) (Auto) 0.0 % Basophils (%) (Auto) 0.2 % Neutrophils # (Auto) 19.4 TH/MM3 Lymphocytes # (Auto) 1.0 TH/MM3 Monocytes # (Auto) 1.3 TH/MM3 Eosinophils # (Auto) 0.0 TH/MM3 Basophils # (Auto) 0.0 TH/MM3 CBC Comment AUTO DIFF Differential Total Cells 100 Counted Neutrophils % (Manual) 81 % Band Neutrophils % 10 % Lymphocytes % 3 % Monocytes % 4 % Neutrophils # (Manual) 20.3 TH/MM3 Metamyelocytes 2 % Differential Comment FINAL DIFF MANUAL Platelet Estimate NORMAL Platelet Morphology Comment NORMAL Culture Results Microbiology Date/Time Procedure Status Source Growth 04/13/16 11:23 Aerobic Blood Culture - Preliminary Resulted Blood Line NO GROWTH IN 1 DAY 04/13/16 11:23 Anaerobic Blood Culture - Preliminary Resulted Blood Line NO GROWTH IN 1 DAY 04/13/16 11:28 Aerobic Blood Culture - Preliminary Resulted Blood Line NO GROWTH IN 1 DAY 04/13/16 11:28 Anaerobic Blood Culture - Preliminary Resulted Blood Line NO GROWTH IN 1 DAY 04/13/16 12:44 Influenza Types A,B Antigen (GEE) - Final Complete Nasal Washing NEGATIVE FOR FLU A AND B ANTIGEN.... Administered Medications Medications (Trade) Dose Ordered Sig/Kary Route PRN Reason Start Time Stop Time Status Last Admin Dose Admin IV Flush (NS Flush) 2 ml BID FLUSH 04/13/16 21:00 04/15/16 09:23 Acetaminophen (Tylenol) 650 mg Q4H PRN PO TEMP > 100f 04/13/16 15:00 04/13/16 22:37 Ondansetron HCl (Zofran Inj) 4 mg Q6H PRN IVP NAUSEA OR VOMITING 04/13/16 15:00 04/15/16 06:24 Magnesium Hydroxide (Milk Of Magncarroll Liq) 30 ml Q12H PRN PO CONSTIPATION 04/13/16 15:00 04/15/16 09:16 Enoxaparin Sodium (Lovenox Inj) 30 mg Q24H SQ 04/13/16 15:00 04/14/16 14:52 Celecoxib (CeleBREX) 200 mg BID PO 04/13/16 21:00 04/15/16 09:14 Lisinopril (Prinivil) 20 mg BID PO 04/13/16 21:00 04/15/16 09:15 Morphine Sulfate (Oramorph Sr) 30 mg BID PO 04/13/16 21:00 04/15/16 09:16 Pravastatin Sodium (Pravachol) 2 mg DAILY PO 04/14/16 09:00 04/15/16 09:15 Finasteride 5 mg 5 mg DAILY PO 04/14/16 09:00 04/15/16 09:14 Vancomycin HCl 1000 mg/Sodium Chloride 250 ml @ 250 mls/hr Q12H IV 04/14/16 02:00 04/15/16 02:14 Cefepime HCl/ Sodium Chloride (Maxipime Inj/NS Inj) 100 ml @ 200 mls/hr Q12H IV 04/14/16 02:00 04/15/16 02:15 Nifedipine 60 mg 60 mg DAILY PO 04/13/16 18:15 04/15/16 09:15 Potassium Chloride/Sodium Chloride (/2 NS + KCl 20 Meq Inj) 1,000 ml @ 100 mls/hr Q10H IV 04/13/16 22:00 04/15/16 02:14 Aspirin (Ecotrin Ec) 162 mg DAILY PO 04/14/16 15:15 04/15/16 09:19 Objective Remarks GENERAL: Elderly male, sitting up in bed in nad. SKIN: Warm and dry. HEAD: Normocephalic. EYES: No injection or drainage. NECK: Supple, trachea midline. CARDIOVASCULAR: Regular rate and rhythm RESPIRATORY: Breath sounds equal bilaterally. No accessory muscle use. GASTROINTESTINAL: Abdomen soft, non-tender, nondistended. EXTREMITIES: No cyanosis NEUROLOGICAL: No obvious focal deficit. Awake, alert, and oriented x3. Assessment/Plan Problem List: (1) Nausea and vomiting Status: Acute Plan: 04/15: continue anti-emetics, IVF, advance diet as tolerated. will also reduce oramorph as patient has been requesting to come off the medication. I dw the patient its better to slowly taper down and see how he feels, rather than d/ c the medication completely. --IVF, anti-emetics --supportive care (2) Prostate cancer metastatic to bone Status: Acute Plan: -- currently getting single-agent Taxotere chemotherapy (outpatient) --originally diagnosed in 2007 and underwent robotic prostatectomy. Subsequently had increase in PSA levels and underwent radiation --had biochemical relapsed in 2012 and was started on Lupron. --2014 had metastatic disease to the bone. started Casodex and switched to Firmagon. Then started on Zytiga as well as Xgeva. --has also been treated with a transdermal estrogen. (3) Leukocytosis Status: Acute Plan: 04/15: WBC improving ---likely due to recent Neulasta injection --BC no growth --on abx (4) Constipation Status: Acute Plan: --rojas-colace Assessment 70y/o with Stage IV prostatic carcinoma admitted with intractable nausea and vomiting and dehydration. h/o Stage IV prostatic adenocarcinoma. Type 2 diabetes. Osteoarthritis. GERD. Hemorrhoids. hypertension. Attending Statement no nausea or vomiting today. Feels better. continue antiemetics. The exam, history, and the medical decision-making described in the above note were completed with the assistance of the mid-level provider. I reviewed and agree with the findings presented. I attest that I had a [id number] encounter with the patient on the same day, and personally performed and documented my assessment and findings in the medical record. Problem Qualifiers (1) Nausea and vomiting: Qualified Code: R11.2 - Nausea and vomiting, intractability of vomiting not specified, unspecified vomiting type (2) Leukocytosis: Qualified Code: D72.829 - Leukocytosis, unspecified type Pat Roblero Apr 15, 2016 10:48 Alejandra Biggs MD Apr 15, 2016 18:18
--- NOTE | 2016-04-15 11:14 | HHI.PR ---
Subjective Remarks LATE ENTRY FOR 04/14/16 NOTE FROM 04/14/16 FAILED TO SAVE IN [employer] Pt states that nausea and vomiting have resolved. Overall pt feels much more comfortable from admission. Pt denies fever or chills. Objective Vitals Vital Signs Date Time Temp Pulse Resp B/P Pulse Ox O2 Delivery O2 Flow Rate FiO2 04/15/16 08:00 99.1 63 18 144/69 94 04/15/16 00:00 97.8 66 17 164/76 95 04/14/16 19:00 98.7 69 16 126/76 96 04/14/16 16:14 98.0 70 18 133/75 96 04/14/16 12:00 99.0 64 18 128/64 96 04/14/16 04/14/16 04/15/16 15:00 23:00 07:00 Intake Total 1009 ml 480 ml 480 ml Output Total 900 ml 500 ml Balance 1009 ml -420 ml -20 ml Intake Oral 720 ml 480 ml 480 ml IV Total 289 ml Output Urine Total 900 ml 500 ml # Voids 6 # Bowel Movements 0 0 0 Result Diagram: 04/15/16 0620 04/14/16 0600 Imaging Last Impressions Abdomen/Pelvis CT 04/13/16 1202 Signed Impressions: Service Date/Time: Wednesday, April 13, 2016 13:00 - CONCLUSION: 1. There are innumerable sclerotic lesions throughout the visualized bones diagnostic of metastatic disease. 2. No other acute finding is identified. There are least 4 low-density lesions in the liver that are too small to characterize. Ravi Garvin MD Chest X-Ray 04/13/16 0000 Signed Impressions: Service Date/Time: Wednesday, April 13, 2016 12:35 - CONCLUSION: 1. No acute cardiopulmonary abnormality is identified. 2. Multiple sclerotic bone lesions in the ribs bilaterally strongly suggestive of metastatic disease from the patient's prostate cancer. Ravi Garvin MD Objective Remarks GENERAL: This is a well-nourished, well-developed patient, in no apparent distress. CARDIOVASCULAR: Regular rate and rhythm without murmurs, gallops, or rubs. RESPIRATORY: Clear to auscultation. Breath sounds equal bilaterally. No wheezes , rales, or rhonchi. GASTROINTESTINAL: Abdomen soft, non-tender, nondistended. Normal active bowel sounds MUSCULOSKELETAL: Extremities without clubbing, cyanosis, or edema. NEURO: Alert & Oriented x4 to person, place, time, situation. Moves all ext x4 A/P Problem List: (1) Intractable nausea and vomiting Status: Acute Plan: - IV zofran - continue IVFs - pre-reanal azotemia now resolved - observe (2) Leukocytosis Status: Acute Plan: - afebrile since 8PM 04/13 - influenza negative - blood cultures (04/13/16) --> NO growth to date - continue vancomycin and cefepime - reassess abx coverage 04/15 (3) Prostate cancer metastatic to bone Status: Acute Plan: - Pt follows with Dr. Das. Problem Qualifiers (1) Intractable nausea and vomiting: Qualified Code: R11.2 - Intractable vomiting with nausea, unspecified vomiting type (2) Leukocytosis: Qualified Code: D72.829 - Leukocytosis, unspecified type Virgilio Torres DO Apr 15, 2016 11:14
[2016-04-15] MEDS ORDERED: DOCUSATE SODIUM 50 MG/SENNA 8.6 MG TAB PO ONE (11:15)
[2016-04-15 12:00] VITALS: BP 145/76; PULSE 60; RESP 18; TEMP 98.3; O2SAT 97
--- NOTE | 2016-04-15 12:52 | HHI.PR ---
Subjective Remarks Pt reports that his abd pain and nausea is not as severe as when he was admitted but overall is improving. No vomiting Eating small amounts of food He has not had a BM in 4 days. +Flatus. He has constipation issues at home and typically uses Magnesium citrate and Dulcolax but this does not always work well for him Afebrile Pt complains of some reflux issues as well which are longstanding. He had been on Omeprazole previously but states that he was taken off of this due to issues with it possibly interacting with his chemo. Objective Vitals Vital Signs Date Time Temp Pulse Resp B/P Pulse Ox O2 Delivery O2 Flow Rate FiO2 04/15/16 08:00 99.1 63 18 144/69 94 04/15/16 00:00 97.8 66 17 164/76 95 04/14/16 19:00 98.7 69 16 126/76 96 04/14/16 16:14 98.0 70 18 133/75 96 04/14/16 04/14/16 04/15/16 15:00 23:00 07:00 Intake Total 1009 ml 480 ml 480 ml Output Total 900 ml 500 ml Balance 1009 ml -420 ml -20 ml Intake Oral 720 ml 480 ml 480 ml IV Total 289 ml Output Urine Total 900 ml 500 ml # Voids 6 # Bowel Movements 0 0 0 Result Diagram: 04/15/16 0620 04/14/16 0600 Other Results Laboratory Tests Test 04/13/16 04/14/16 04/15/16 13:20 06:00 06:20 Urine Color YELLOW Urine Turbidity CLEAR Urine pH 7.5 Urine Specific [place] 1.014 Urine Protein NEG mg/dL Urine Glucose (UA) NEG mg/dL Urine Ketones 10 mg/dL Urine Occult Blood NEG Urine Nitrite NEG Urine Bilirubin NEG Urine Urobilinogen LESS THAN 2.0 MG/DL Urine Leukocyte Esterase NEG Urine RBC 1 /hpf Urine WBC 1 /hpf Microscopic Urinalysis Comment CULT NOT INDICATED White Blood Count 32.7 TH/MM3 21.8 TH/MM3 Red Blood Count 3.84 MIL/MM3 3.99 MIL/MM3 Hemoglobin 10.6 GM/DL 11.0 GM/DL Hematocrit 32.4 % 33.8 % Mean Corpuscular Volume 84.3 FL 84.6 FL Mean Corpuscular Hemoglobin 27.7 PG 27.5 PG Mean Corpuscular Hemoglobin 32.9 % 32.5 % Concent Red Cell Distribution Width 18.4 % 17.6 % Platelet Count 177 TH/MM3 165 TH/MM3 Mean Platelet Volume 8.5 FL 8.2 FL Neutrophils (%) (Auto) 91.6 % 89.0 % Lymphocytes (%) (Auto) 3.4 % 4.8 % Monocytes (%) (Auto) 4.8 % 6.0 % Eosinophils (%) (Auto) 0.0 % 0.0 % Basophils (%) (Auto) 0.2 % 0.2 % Neutrophils # (Auto) 29.9 TH/MM3 19.4 TH/MM3 Lymphocytes # (Auto) 1.1 TH/MM3 1.0 TH/MM3 Monocytes # (Auto) 1.6 TH/MM3 1.3 TH/MM3 Eosinophils # (Auto) 0.0 TH/MM3 0.0 TH/MM3 Basophils # (Auto) 0.1 TH/MM3 0.0 TH/MM3 CBC Comment AUTO DIFF AUTO DIFF Differential Total Cells 100 100 Counted Neutrophils % (Manual) 64 % 81 % Band Neutrophils % 19 % 10 % Lymphocytes % 7 % 3 % Monocytes % 4 % 4 % Neutrophils # (Manual) 29.1 TH/MM3 20.3 TH/MM3 Metamyelocytes 2 % 2 % Myelocytes 4 % Differential Comment FINAL DIFF FINAL DIFF MANUAL MANUAL Toxic Granulation 1+ Platelet Estimate NORMAL NORMAL Platelet Morphology Comment NORMAL NORMAL Ovalocytes 1+ Sodium Level 137 MEQ/L Potassium Level 3.5 MEQ/L Chloride Level 102 MEQ/L Carbon Dioxide Level 26.0 MEQ/L Anion Gap 9 MEQ/L Blood Urea Nitrogen 14 MG/DL Creatinine 0.71 MG/DL Estimat Glomerular Filtration 109 ML/MIN Rate Random Glucose 108 MG/DL Calcium Level 7.5 MG/DL Magnesium Level 2.1 MG/DL Imaging Last Impressions Abdomen/Pelvis CT 04/13/16 1202 Signed Impressions: Service Date/Time: Wednesday, April 13, 2016 13:00 - CONCLUSION: 1. There are innumerable sclerotic lesions throughout the visualized bones diagnostic of metastatic disease. 2. No other acute finding is identified. There are least 4 low-density lesions in the liver that are too small to characterize. Ravi Garvin MD Chest X-Ray 04/13/16 0000 Signed Impressions: Service Date/Time: Wednesday, April 13, 2016 12:35 - CONCLUSION: 1. No acute cardiopulmonary abnormality is identified. 2. Multiple sclerotic bone lesions in the ribs bilaterally strongly suggestive of metastatic disease from the patient's prostate cancer. Ravi Garvin MD Objective Remarks General: NAD, AAOx3 Chest: CTA bilaterally Cardiac: Regular Abd: +BS, soft ND/NT Ext: No edema A/P Problem List: (1) Intractable nausea and vomiting Status: Acute Plan: - Improving. - IV zofran - IVFs stopped 04/15 - pre-renal azotemia now resolved - Encourage oral intake. - Start PPI - Discussed starting Protonix with Heme/Onc and this was felt to be appropriate at this time. - Pt also with some constipation issues which are longstanding, he uses Mag Citrate and Dulcolax at home but doesn't always work well - Trial of Lactulose BID (2) Leukocytosis Status: Acute Plan: - Likely secondary to Neulasta - afebrile since 8PM 04/13 - influenza negative - blood cultures (04/13/16) --> NO growth to date - continue vancomycin and cefepime (3) Prostate cancer metastatic to bone Status: Acute Plan: - Pt follows with Dr. Das. - Originally diagnosed in 2007 and underwent robotic prostatectomy. Subsequently had increase in PSA levels and underwent radiation - He had biochemical relapsed in 2012 and was started on Lupron. - In 2013 he had metastatic disease to the bone. started Casodex and switched to Firmagon. Then started on Zytiga as well as Xgeva. - Pt currently on Taxotere chemotherapy as an outpatient Assessment and Plan Patient examined. Assessment and plan formulated with Velma Waller PA-C. I agree with the above. feels much better. d/c after bowels move. leukocytosis better. possibley neulasta related. if cx neg then d/c abx prior to d/c Problem Qualifiers (1) Intractable nausea and vomiting: Qualified Code: R11.2 - Intractable vomiting with nausea, unspecified vomiting type (2) Leukocytosis: Qualified Code: D72.829 - Leukocytosis, unspecified type Velma Waller Apr 15, 2016 12:52 Wil Thomas MD Apr 15, 2016 17:10
[2016-04-15] MEDS: LACTULOSE SYRUP 20 GM/30 ML CUP PO SCH ×2 (13:17→20:38)
[2016-04-15] MEDS: ENOXAPARIN SODIUM 30 MG/0.3 ML SYRINGE SQ SCH (13:18)
[2016-04-15] MEDS: PANTOPRAZOLE SOD 40 MG DELAYED RELEASE TAB PO SCH (13:21)
[2016-04-15 16:00] VITALS: BP 102/51; PULSE 61; RESP 17; TEMP 97.3; O2SAT 95
[2016-04-15 19:45] VITALS: BP 112/62; PULSE 61; RESP 17; TEMP 99.1; O2SAT 97
[2016-04-15] MEDS: MORPHINE SULFATE 15 MG CONTROLLED RELEASE TAB PO SCH (20:37)
--- NOTE | 2016-04-15 21:23 | EKG ---
Date Performed: 04/13/2016 Time Performed: 15:17:31 PTAGE: 70 years EKG: SINUS BRADYCARDIA WITH FIRST DEGREE AV BLOCK POSSIBLE LEFT VENTRICULAR HYPERTROPHY ABNORMAL ECG PREVIOUS TRACING : 09/22/2012 16.46 Compared to the previous tracing, previous EKG had limb steph d reversal which affects comparison DOCTOR: Guillermo Mann Interpretating Date/Time 04/15/2016 21:22:59
[2016-04-16 00:15] VITALS: BP 100/57; PULSE 56; RESP 17; TEMP 96.3; O2SAT 96
[2016-04-16] MEDS: CEFEPIME INJ 1,000 MG in SODIUM CHLORIDE 0.9% INJ 100 ML IV SCH (02:15)
[2016-04-16] MEDS: VANCOMYCIN INJ 1,000 MG in SODIUM CHLOR 0.9% 250 ML INJ 250 ML IV SCH (02:16)
[2016-04-16] MEDS: INSULIN ASPART SUPPLEMENTAL SCALE SQ SCH ×2 (07:00→11:00)
[2016-04-16 08:00] VITALS: BP 111/67; PULSE 55; RESP 16; TEMP 97.4; O2SAT 96
[2016-04-16] MEDS: FINASTERIDE 5 MG TAB PO SCH (08:55)
[2016-04-16] MEDS: PRAVASTATIN SOD 40 MG TAB PO SCH (08:56)
[2016-04-16] MEDS: CELECOXIB 200 MG CAP PO SCH (08:56)
[2016-04-16] MEDS: NIFEdipine 60 MG SUSTAINED RELEASE TAB PO SCH (08:56)
[2016-04-16] MEDS: PANTOPRAZOLE SOD 40 MG DELAYED RELEASE TAB PO SCH (08:56)
[2016-04-16] MEDS: ASPIRIN EC 81 MG TABEC PO SCH (08:56)
[2016-04-16] MEDS: LISINOPRIL 20 MG TAB PO SCH (08:56)
[2016-04-16] MEDS: MORPHINE SULFATE 15 MG CONTROLLED RELEASE TAB PO SCH (08:57)
[2016-04-16] MEDS: LACTULOSE SYRUP 20 GM/30 ML CUP PO SCH (08:59)
[2016-04-16] MEDS: SODIUM CHLORIDE 0.9% FLUSH 5 ML FLUSH FLUSH SCH (08:59)
[2016-04-16 11:05] LABS: AUTOMATED NEUTROPHIL # 12.8 TH/MM3 (1.8-7.7); BASOPHIL # 0.1 TH/MM3 (0-0.2); BASOPHIL % 0.4 % (0.0-2.0); EOSINOPHIL % 0.2 % (0.0-4.0); HEMATOCRIT 31.2 % (39.0-51.0); LYMPHOCYTE # 0.7 TH/MM3 (1.0-4.8); MEAN CELL VOLUME 84.7 FL (80.0-100.0); MEAN CORPUSCULAR HEMOGLOBIN 27.8 PG (27.0-34.0); MEAN CORPUSCULAR HGB CONC 32.8 % (32.0-36.0); MONO % 6.8 % (0.0-8.0); NEUT % 87.6 % (16.0-70.0); PLATELET COUNT 154 TH/MM3 (150-450); RED BLOOD COUNT 3.68 MIL/MM3 (4.50-5.90); RED CELL DISTRIBUTION WIDTH 18.3 % (11.6-17.2); WHITE BLOOD COUNT 14.6 TH/MM3 (4.0-11.0)
[2016-04-16 11:09] LABS: HEMO FLAGS AUTO DIFF
--- NOTE | 2016-04-16 11:40 | PD.ONC.PN ---
Subjective Subjective Remarks Afebrile overnight. Patient resting comfortably. He had a BM. he is eating without nausea. No vomiting. He wants to go home. Objective Data Date Time Temp Pulse Resp B/P Pulse Ox O2 Delivery O2 Flow Rate FiO2 04/16/16 08:00 97.4 55 16 111/67 96 04/16/16 00:15 96.3 56 17 100/57 96 04/15/16 19:45 99.1 61 17 112/62 97 04/15/16 16:00 97.3 61 17 102/51 95 04/15/16 12:00 98.3 60 18 145/76 97 04/16/16 04/16/16 04/16/16 07:00 15:00 23:00 Intake Total 619 ml Output Total 450 ml Balance 169 ml Result Diagram: 04/16/16 1030 04/14/16 0600 Laboratory Results Laboratory Tests Test 04/16/16 10:30 White Blood Count 14.6 TH/MM3 Red Blood Count 3.68 MIL/MM3 Hemoglobin 10.2 GM/DL Hematocrit 31.2 % Mean Corpuscular Volume 84.7 FL Mean Corpuscular Hemoglobin 27.8 PG Mean Corpuscular Hemoglobin 32.8 % Concent Red Cell Distribution Width 18.3 % Platelet Count 154 TH/MM3 Mean Platelet Volume 8.5 FL Neutrophils (%) (Auto) 87.6 % Lymphocytes (%) (Auto) 5.0 % Monocytes (%) (Auto) 6.8 % Eosinophils (%) (Auto) 0.2 % Basophils (%) (Auto) 0.4 % Neutrophils # (Auto) 12.8 TH/MM3 Lymphocytes # (Auto) 0.7 TH/MM3 Monocytes # (Auto) 1.0 TH/MM3 Eosinophils # (Auto) 0.0 TH/MM3 Basophils # (Auto) 0.1 TH/MM3 CBC Comment AUTO DIFF Culture Results Microbiology Date/Time Procedure Status Source Growth 04/13/16 12:44 Influenza Types A,B Antigen (GEE) - Final Complete Nasal Washing NEGATIVE FOR FLU A AND B ANTIGEN.... Administered Medications Medications (Trade) Dose Ordered Sig/Kary Route PRN Reason Start Time Stop Time Status Last Admin Dose Admin IV Flush (NS Flush) 2 ml BID FLUSH 04/13/16 21:00 04/16/16 08:59 Acetaminophen (Tylenol) 650 mg Q4H PRN PO TEMP > 100f 04/13/16 15:00 04/13/16 22:37 Ondansetron HCl (Zofran Inj) 4 mg Q6H PRN IVP NAUSEA OR VOMITING 04/13/16 15:00 04/15/16 13:18 Magnesium Hydroxide (Milk Of Magnesia Liq) 30 ml Q12H PRN PO CONSTIPATION 04/13/16 15:00 04/15/16 09:16 Enoxaparin Sodium (Lovenox Inj) 30 mg Q24H SQ 04/13/16 15:00 04/15/16 13:18 Celecoxib (CeleBREX) 200 mg BID PO 04/13/16 21:00 04/16/16 08:56 Lisinopril (Prinivil) 20 mg BID PO 04/13/16 21:00 04/16/16 08:56 Pravastatin Sodium (Pravachol) 2 mg DAILY PO 04/14/16 09:00 04/16/16 08:56 Finasteride 5 mg 5 mg DAILY PO 04/14/16 09:00 04/16/16 08:55 Vancomycin HCl 1000 mg/Sodium Chloride 250 ml @ 250 mls/hr Q12H IV 04/14/16 02:00 04/16/16 02:16 Cefepime HCl/ Sodium Chloride (Maxipime Inj/NS Inj) 100 ml @ 200 mls/hr Q12H IV 04/14/16 02:00 04/16/16 02:15 Nifedipine (Procardia Xl) 60 mg DAILY PO 04/13/16 18:15 04/16/16 08:56 Aspirin (Ecotrin Ec) 162 mg DAILY PO 04/14/16 15:15 04/16/16 08:56 Morphine Sulfate (Oramorph Sr) 15 mg Q12HR PO 04/15/16 21:00 04/16/16 08:57 Lactulose (Lactulose Liq) 30 ml BID PO 04/15/16 12:30 04/15/16 20:38 Pantoprazole Sodium (Protonix) 40 mg DAILY PO 04/15/16 12:30 04/16/16 08:56 Objective Remarks GENERAL: Elderly male, sitting up in bed in [employer], just finished eating breakfast. SKIN: Warm and dry. CARDIOVASCULAR: Regular rate and rhythm RESPIRATORY: Breath sounds equal bilaterally. No accessory muscle use. GASTROINTESTINAL: Abdomen soft, non-tender, nondistended. EXTREMITIES: No cyanosis NEUROLOGICAL: awake and alert, normal speech. moving all extremities. Assessment/Plan Problem List: (1) Nausea and vomiting Status: Resolved Plan: 04/16: clear for discharge. follow up in clinic 04/15: continue anti-emetics, IVF, advance diet as tolerated. will also reduce oramorph as patient has been requesting to come off the medication. I dw the patient its better to slowly taper down and see how he feels, rather than d/c the medication completely. --IVF, anti-emetics --supportive care (2) Prostate cancer metastatic to bone Status: Acute Plan: -- currently getting single-agent Taxotere chemotherapy (outpatient) --originally diagnosed in 2007 and underwent robotic prostatectomy. Subsequently had increase in PSA levels and underwent radiation --had biochemical relapsed in 2012 and was started on Lupron. --2013 had metastatic disease to the bone. started Casodex and switched to Firmagon. Then started on Zytiga as well as Xgeva. --has also been treated with a transdermal estrogen. (3) Leukocytosis Status: Acute Plan: 04/16: WBC improving ---likely due to recent Neulasta injection --BC no growth --on abx Assessment 70y/o with Stage IV prostatic carcinoma admitted with intractable nausea and vomiting and dehydration. h/o Stage IV prostatic adenocarcinoma. Type 2 diabetes. Osteoarthritis. GERD. Hemorrhoids. hypertension. Attending Statement feels better wants to go home has fu appt with me continue antiemetics The exam, history, and the medical decision-making described in the above note were completed with the assistance of the mid-level provider. I reviewed and agree with the findings presented. I attest that I had a [id number] encounter with the patient on the same day, and personally performed and documented my assessment and findings in the medical record. Problem Qualifiers (1) Nausea and vomiting: Qualified Code: R11.2 - Nausea and vomiting, intractability of vomiting not specified, unspecified vomiting type (2) Leukocytosis: Qualified Code: D72.829 - Leukocytosis, unspecified type Pat Roblero Apr 16, 2016 11:40 Alejandra Biggs MD Apr 16, 2016 22:12
[2016-04-16 12:00] VITALS: BP 120/62; PULSE 48; RESP 16; TEMP 97.9; O2SAT 95
[2016-04-16 12:05] LABS: BANDS 6 % (0-6); MYELOCYTES 1 % (0-0); NEUTROPHIL # MANUAL DIFF 13.3 TH/MM3 (1.8-7.7); PLATELET ESTIMATE SMEAR NORMAL (NORMAL); PLATELET MORPHOLOGY NORMAL (NORMAL); POLYS (SEG NEUTROPHILS) 84 % (16-70); SCAN/DIFF FINAL DIFF MANUAL; WBC DIFF SAMPLE 100
[2016-04-16 12:06] LABS: OVALOCYTES 1+ (NORMAL)
--- NOTE | 2016-04-16 13:54 | HHI.DS ---
Discharge Summary Admission Date Apr 13, 2016 at 15:02 Discharge Date: Apr 16, 2016 Admitting Diagnosis metastatic prostate Ca,intractable nausea and vomiting, leukocytosis (1) Intractable nausea and vomiting Diagnosis: Principal (2) Leukocytosis Diagnosis: Secondary (3) Prostate cancer metastatic to bone Diagnosis: Secondary Consultants Dr. Shemar Mcwilliams - Hematology/Oncology Brief History 70-year-old male with history of DM, GERD, HTN, prostate cancer, diagnosed 2007 , s/p robotic prostatectomy 2008, currently on palliative Taxotere chemotherapy , followed by Dr. Biggs presents to the ED for evaluation of 5 day history of intractable nausea and vomiting. Patient endorses right lower quadrant abdominal pain at onset, denies abdominal pain on presentation. He went to his oncologist yesterday was given 500ml NS bolus and Zofran which improved his symptoms. However, upon waking today is unable to keep anything down. He estimates 4-5 episodes of nonbloody, nonbilious vomiting. Also complains of subjective fever and chills and mild shortness of breath. He denies chest pain , palpitations, cough, back pain, dysuria. Last bowel movement "3 or 4 days ago , well-formed, nonbloody, small. CBC/BMP: 04/16/16 1030 04/14/16 0600 Significant Findings Laboratory Tests Test 04/14/16 04/15/16 04/16/16 06:00 06:20 10:30 White Blood Count 32.7 TH/MM3 21.8 TH/MM3 14.6 TH/MM3 (4.0-11.0) (4.0-11.0) (4.0-11.0) Red Blood Count 3.84 MIL/MM3 3.99 MIL/MM3 3.68 MIL/MM3 (4.50-5.90) (4.50-5.90) (4.50-5.90) Hemoglobin 10.6 GM/DL 11.0 GM/DL 10.2 GM/DL (13.0-17.0) (13.0-17.0) (13.0-17.0) Hematocrit 32.4 % 33.8 % 31.2 % (39.0-51.0) (39.0-51.0) (39.0-51.0) Red Cell Distribution Width 18.4 % 17.6 % 18.3 % (11.6-17.2) (11.6-17.2) (11.6-17.2) Neutrophils (%) (Auto) 91.6 % 89.0 % 87.6 % (16.0-70.0) (16.0-70.0) (16.0-70.0) Lymphocytes (%) (Auto) 3.4 % 4.8 % 5.0 % (9.0-44.0) (9.0-44.0) (9.0-44.0) Neutrophils # (Auto) 29.9 TH/MM3 19.4 TH/MM3 12.8 TH/MM3 (1.8-7.7) (1.8-7.7) (1.8-7.7) Monocytes # (Auto) 1.6 TH/MM3 1.3 TH/MM3 1.0 TH/MM3 (0-0.9) (0-0.9) (0-0.9) Band Neutrophils % 19 % (0-6) 10 % (0-6) Lymphocytes % 7 % (9-44) 3 % (9-44) 6 % (9-44) Neutrophils # (Manual) 29.1 TH/MM3 20.3 TH/MM3 13.3 TH/MM3 (1.8-7.7) (1.8-7.7) (1.8-7.7) Metamyelocytes 2 % (0-1) 2 % (0-1) Myelocytes 4 % (0-0) 1 % (0-0) Toxic Granulation 1+ (NORMAL) Ovalocytes 1+ (NORMAL) 1+ (NORMAL) Random Glucose 108 MG/DL (74-106) Calcium Level 7.5 MG/DL (8.5-10.1) Neutrophils % (Manual) 81 % (16-70) 84 % (16-70) Lymphocytes # (Auto) 0.7 TH/MM3 (1.0-4.8) Imaging Last Impressions Abdomen/Pelvis CT 04/13/16 1202 Signed Impressions: Service Date/Time: Wednesday, April 13, 2016 13:00 - CONCLUSION: 1. There are innumerable sclerotic lesions throughout the visualized bones diagnostic of metastatic disease. 2. No other acute finding is identified. There are least 4 low-density lesions in the liver that are too small to characterize. Ravi Garvin MD Chest X-Ray 04/13/16 0000 Signed Impressions: Service Date/Time: Wednesday, April 13, 2016 12:35 - CONCLUSION: 1. No acute cardiopulmonary abnormality is identified. 2. Multiple sclerotic bone lesions in the ribs bilaterally strongly suggestive of metastatic disease from the patient's prostate cancer. Ravi Garvin MD PE at Discharge General: NAD, AAOx3 Chest: CTA bilaterally Cardiac: Regular Abd: +BS, soft ND/NT Ext: No edema Hospital Course Pt admitted with intractable nausea and vomiting. Unclear if this was related to delayed effects from his chemo vs. possibly some gastroenteritis vs. other. Pt was given IVF and IV Zofran She was noted to have some acute renal insufficiency at admission likely secondary to dehydration. Pt Improved clinically and was able to tolerated oral intake without difficulty prior to discharge. Pt also complained of some reflux symptoms and was start on PPI. Discussed starting Protonix with Heme/ Onc and this was felt to be appropriate at this time. Pt also with some constipation issues which are longstanding, he uses Mag Citrate and Dulcolax at home but doesn't always work well. Pt was given a trial of Lactulose and Tian[place]- Colace and that worked well for him. He was noted to have some leukocytosis at admission but it was felt that this was likely secondary to Neulasta. Pt did have a low grade temps during this admission but none for 3 days prior to discharge. The influenza test was negative. Blood cultures (04/13/16) --> NO growth to date. Pt was given vancomycin and cefepime during this admission but will not be continued at discharge. Pt will need to followup with Dr. Mcwilliams next week for his continued chemo. Pt will continue on Zofran ODT 4mg Q6H PRN and Protonix 40mg po daily Pt will need to followup with his PCP, Dr. Resendiz, in 1 week. Pt Condition on Discharge: Good Discharge Disposition: Discharge Home Discharge Instructions DIET: Follow Instructions for: Heart Healthy Diet Activities you can perform: Regular-No Restrictions Follow up Referrals: Oncology with Dr. Mcwilliams PCP Follow-up - [address] Resendiz Continued Medications: Celecoxib (Celebrex) 200 Mg Cap 200 MG PO BID Pain Management Ref 0 CAP Degarelix Inj (Firmagon Inj) 80 Mg Inj 80 MG SQ Q28D Chemotherapy Management #1 Ref 0 VIAL Dutasteride (Dutasteride) 0.5 Mg Cap 0.5 MG PO DAILY Manage Prostate Problems #30 Ref 0 CAP Fluticasone Propionate (Nasal) (Allergy Nasal [place] 24 Ho) 50 Mcg/Act Spr 2 SPRAY Lisinopril (Lisinopril) 20 Mg Tab 20 MG PO BID PRN #30 Ref 0 TAB Metformin (Metformin) 500 Mg Tab 500 MG PO BIDPC With meals Blood Sugar Management #60 Ref 0 TAB Morphine ER (Morphine ER) 30 Mg Tab 30 MG PO BID Pain Management Ref 0 TAB Pitavastatin (Livalo) 2 Mg Tab 2 MG PO DAILY Cholesterol Management #30 Ref 0 TAB Vitamin D & K (D3 + K2 Dots 1000-90 Unit-Mcg) 1 Tab Tab 2 TAB Discontinued Medications: Pegfilgrastim Inj (Neulasta Inj) 6 Mg/0.6 Ml Inj 6 MG SQ ONCE per chemotherapy cycle #1 Ref 0 VIAL Velma Waller Apr 16, 2016 13:54 Wil Thomas MD Apr 16, 2016 15:42
[2016-04-16] MEDS ORDERED: ZOFR4TAB3 SL (13:55)
--- NOTE | 2016-04-16 13:55 | HHI.DCPOC ---
Discharge Care Plan Diagnosis: (1) Nausea and vomiting (2) Constipation (3) Prostate cancer metastatic to bone (4) Leukocytosis Goals to Promote Your Health * To prevent worsening of your condition and complications * To maintain your health at the optimal level Directions to Meet Your Goals Take your medications as prescribed Follow your dietary instruction Follow activity as directed Keep your appointments as scheduled Take your immunizations and boosters as scheduled If your symptoms worsen call your PCP, if no PCP go to Urgent Care Center or Emergency Room Smoking is Dangerous to Your Health. Avoid second hand smoke Call the 24-hour hour crisis hotline for domestic abuse at Velma Waller Apr 16, 2016 13:55
[2016-04-16] MEDS ORDERED: PANT40TA3 PO (14:04)
[2016-04-17] MEDS ORDERED: ASPI1TAB69 PO (11:23)
[2016-04-17] MEDS ORDERED: CELE200C PO (11:24)
[2016-04-17] MEDS ORDERED: LACT10SO27 PO (12:46)
== END 2016-04-16 16:11 | disposition home or self-care (01) | DRG 392 ==
LOC: NEPA 10:50 → NEDA 15:02 → N06B 17:53
PROVIDERS: ADMIT Hospitalist; ATTEND Hospitalist
DX: R11.2 Nausea with vomiting, unspecified (principal); T45.1X5A Adverse effect of antineoplastic and immunosuppressive drugs, initial encounter; C79.51 Secondary malignant neoplasm of bone; C61 Malignant neoplasm of prostate; E11.9 Type 2 diabetes mellitus without complications; Z79.84 Long term (current) use of oral hypoglycemic drugs; E86.0 Dehydration; I10 Essential (primary) hypertension; D64.9 Anemia, unspecified; K21.9 Gastro-esophageal reflux disease without esophagitis; Z90.79 Acquired absence of other genital organ(s); N28.9 Disorder of kidney and ureter, unspecified; K59.00 Constipation, unspecified; M19.90 Unspecified osteoarthritis, unspecified site; Z92.3 Personal history of irradiation
CPT/HCPCS: 71010; 74177; 80048; 80053; 81001; 82948; 83605; 83690; 83735; 85007; 85027; 85610; 85730; 87040; 87804; 93005; 96361; 96372; 96374; 96375; 96376; J0692; J1650; J2270; J2405; J2550; J3370; J7030; J7050; Q9967

== ENCOUNTER 2016-04-17 10:07 | Emergency (ER) | payer MEDICARE ==
[~2016-04-17] VITALS: Ht 177.8 cm; Wt 80.0 kg
[~2016-04-17 10:07] MED LIST changes: -AVOD0.5C PO; -CELE200 PO; +D3 +TAB PO; -DENO120P SQ; +DUTA1CAP2 PO; +FLUT1SPR22; -HYDR-2768 PO; +LIVA2TAB PO; +MORP1TAB25 PO; -OMEP20CA5 PO; +PANT40TA3 PO; -STOO100C PO; -URSO300C2 PO; -VASO10TA8 PO; +ZOFR4TAB3 SL
[2016-04-17 10:10] VITALS: BP 202/96; PULSE 58; RESP 24; TEMP 98.5; O2SAT 95
--- NOTE | 2016-04-17 10:42 | PD ---
HPI Chief Complaint: Abdominal Pain Time Seen by Provider: 10:18 Travel History International Travel<30 days: No Contact w/Intl Traveler<30days: No Traveled to known affect area: No History of Present Illness HPI 70-year-old male states he just got discharged from the hospital yesterday went home had dinner tried Dulcolax and milk of magnesia and senna S as discussed but has not been able to have a bowel movement. He is concerned he still constipated and having intermittent pain and nausea. He mainly is concerned about the constipation. He denies other concurrent complaints. He confirms his past medical history. He only had a small amount while he was in the hospital and has not had a significant bowel movement in a while. PFSH Past Medical History Arthritis: Yes Asthma: No Autoimmune Disease: No Anxiety: No Depression: No Heart Rhythm Problems: No Cancer: Yes (PROSTATE CANCER WITH BONE METS) Cardiovascular Problems: Yes High Cholesterol: Yes Chemotherapy: Yes Chest Pain: No Congestive Heart Failure: No COPD: No Cerebrovascular Accident: Yes Diabetes: Yes Patient Takes Glucophage: Yes Diminished Hearing: No Endocrine: Yes Gastrointestinal Disorders: Yes GERD: Yes Glaucoma: No Genitourinary: Yes Hepatitis: No Hiatal Hernia: No Hypertension: Yes Immune Disorder: No Implanted Vascular Access Dvce: Yes Kidney Stones: No Medical other: Yes (ACID REFLUX,HX SHINGLES,AUGUST 2007,URINARY INCONTINENCE) Musculoskeletal: Yes (METASTATIC BONE CANCER) Neurologic: Yes Psychiatric: No Reproductive: No Respiratory: No Migraines: No Radiation Therapy: Yes Renal Failure: No Seizures: No Sickle Cell Disease: No Sleep Apnea: No Thyroid Disease: No Ulcer: No Past Surgical History Abdominal Surgery: No AICD: No Arteriovenous Shunt: No Cardiac Surgery: No Ear Surgery: No Endocrine Surgery: No Eye Surgery: No Genitourinary Surgery: Yes (TURP) Gynecologic Surgery: No Insulin Pump: No Joint Replacement: No Oral Surgery: No Pacemaker: No Prostatectomy: Yes (10/06/07) Thoracic Surgery: No Other Surgery: Yes (05/02 RIGHT INGUINAL HERNIA REPAIR) Social History Alcohol Use: No (2 GLASSES WINE DAY) Tobacco Use: No Substance Use: No Allergies-Medications (Allergen,Severity, Reaction): Coded Allergies: Augmentin (Verified Allergy, Unknown, Nausea/Vomiting, 04/13/16) Reported Meds & Prescriptions Reported Meds & Active Scripts Active Lactulose Liq (Lactulose (Encephalopathy) Liq) 19 Gm/15 Ml Soln 30 Ml PO Q6HR PRN 7 Days Pantoprazole (Pantoprazole Sodium) 40 Mg Tab 40 Mg PO DAILY Zofran Odt (Ondansetron Odt) 4 Mg Tab 4 Mg SL Q6HR PRN Reported Celebrex (Celecoxib) 200 Mg Cap 200 Mg PO BID Aspirin 81 Mg Tabdr 162 Mg PO DAILY D3 + K2 Dots 1000-90 Unit-Mcg (Vitamin D & K) 1 Tab Tab 2 Tab PO DAILY Morphine ER (Morphine Sulfate) 30 Mg Tab 30 Mg PO BID May take additional dose if needed Livalo (Pitavastatin) 2 Mg Tab 2 Mg PO DAILY Metformin (Metformin HCl) 500 Mg Tab 1,000 Mg PO BID With meals Firmagon Inj (Degarelix Inj) 80 Mg Inj 80 Mg SQ Q28D Lisinopril 20 Mg Tab 20 Mg PO BID Dutasteride 0.5 Mg Cap 0.5 Mg PO DAILY Review of Systems Except as stated in HPI: all other systems reviewed are Neg Physical Exam Narrative GENERAL: Well-nourished, well-developed patient. SKIN: Warm and dry. HEAD: Normocephalic and atraumatic. EYES: No injection or drainage. ENT: No nasal drainage noted. NECK: Supple, trachea midline. CARDIOVASCULAR: Regular rate and rhythm RESPIRATORY: No increased effort. No accessory muscle use. GASTROINTESTINAL: Abdomen soft, non-tender, nondistended. RECTAL EXAM: Performed with film process operator and after permission. No large external hemorrhoid or fissure, stool is brown, non-bloody without significant impaction NEUROLOGICAL: Awake and alert. Motor and sensory grossly within normal limits. Normal speech. Data Data Last Documented VS Vital Signs Date Time Temp Pulse Resp B/P Pulse Ox O2 Delivery O2 Flow Rate FiO2 04/17/16 13:39 79 18 189/88 98 04/17/16 10:10 98.5 Room Air Orders Complete Blood Count With Diff (04/17/16 10:21) Comprehensive Metabolic Panel (04/17/16 10:21) Urinalysis - C+S If Indicated (04/17/16 10:21) Lipase (04/17/16 10:21) Iv Access Insert/Monitor (04/17/16 10:21) Abdomen, Kub Only (04/17/16 ) Magnesium Citrate Liq (Citroma Liq) (04/17/16 12:45) Ondansetron Inj (Zofran Inj) (04/17/16 13:15) Labs Laboratory Tests Test 04/17/16 04/17/16 10:35 12:00 White Blood Count 19.5 TH/MM3 Red Blood Count 3.99 MIL/MM3 Hemoglobin 11.0 GM/DL Hematocrit 33.7 % Mean Corpuscular Volume 84.6 FL Mean Corpuscular Hemoglobin 27.5 PG Mean Corpuscular Hemoglobin 32.5 % Concent Red Cell Distribution Width 18.2 % Platelet Count 166 TH/MM3 Mean Platelet Volume 8.8 FL Neutrophils (%) (Auto) 93.1 % Lymphocytes (%) (Auto) 2.9 % Monocytes (%) (Auto) 3.7 % Eosinophils (%) (Auto) 0.0 % Basophils (%) (Auto) 0.3 % Neutrophils # (Auto) 18.2 TH/MM3 Lymphocytes # (Auto) 0.6 TH/MM3 Monocytes # (Auto) 0.7 TH/MM3 Eosinophils # (Auto) 0.0 TH/MM3 Basophils # (Auto) 0.1 TH/MM3 CBC Comment AUTO DIFF Differential Total Cells 100 Counted Neutrophils % (Manual) 92 % Lymphocytes % 5 % Monocytes % 2 % Basophils % 1 % Neutrophils # (Manual) 17.9 TH/MM3 Differential Comment FINAL DIFF MANUAL Platelet Estimate NORMAL Platelet Morphology Comment NORMAL Tear Drop Cells 1+ Sodium Level 136 MEQ/L Potassium Level 4.0 MEQ/L Chloride Level 104 MEQ/L Carbon Dioxide Level 24.3 MEQ/L Anion Gap 8 MEQ/L Blood Urea Nitrogen 18 MG/DL Creatinine 0.65 MG/DL Estimat Glomerular Filtration 121 ML/MIN Rate Random Glucose 110 MG/DL Calcium Level 7.1 MG/DL Protein Corrected Calcium 7.6 MG/DL Total Bilirubin 0.5 MG/DL Aspartate Amino Transf 14 U/L (AST/SGOT) Alanine Aminotransferase 17 U/L (ALT/SGPT) Alkaline Phosphatase 110 U/L Total Protein 6.1 GM/DL Albumin 3.3 GM/DL Lipase 68 U/L Urine Color YELLOW Urine Turbidity CLEAR Urine pH 6.5 Urine Specific Duncan 1.016 Urine Protein TRACE mg/dL Urine Glucose (UA) NEG mg/dL Urine Ketones NEG mg/dL Urine Occult Blood TRACE Urine Nitrite NEG Urine Bilirubin NEG Urine Urobilinogen LESS THAN 2.0 MG/DL Urine Leukocyte Esterase NEG Urine RBC 6 /hpf Urine WBC 1 /hpf Urine Mucus FEW /lpf Microscopic Urinalysis Comment CULT NOT INDICATED MDM Medical Decision Making Medical Screen Exam Complete: Yes Emergency Medical Condition: Yes Medical Record Reviewed: Yes (past history confirmed) Interpretation(s) CBC & BMP Diagram 04/17/16 10:35 Last 24 hours Impressions Abdomen X-Ray 04/17/16 0000 Signed Impressions: Service Date/Time: Sunday, April 17, 2016 11:07 - CONCLUSION: 1. Stool-filled colon suggesting constipation. 2. Sclerotic lesions within the osseous structures consistent with metastatic prostate cancer Garcia Solis MD Differential Diagnosis Constipation, impaction, obstruction Narrative Course Will check blood work, KUB and discuss with his oncologist Patient without impaction on exam, patient without signs of obstruction and KUB shows no significant signs. Also with recent CT that was negative. Blood work is stable. We'll discuss with his oncologist Patient is happy to go home with recommendations as described with mag citrate 1 here in lactulose prescription to use as needed at home. No emesis here, Patient denies any new complaints , all questions answered. Patient knows that follow up is incumbent on them and to return to the emergency room immediately if new or worsening symptoms develop. Patient given strict return precautions, vitals reviewed and are normal, agrees to further workup as an outpatient. at bedside and will take home meds when gets home Physician Communication Physician Communication Dr. Biggs states to send home on lactulose and is okay with mag citrate 1 here, leukocytosis is from Neulasta Diagnosis Primary Impression: Constipation Qualified Code: K59.00 - Constipation, unspecified constipation type Additional Impressions: Abdominal pain Qualified Code: R10.9 - Abdominal pain, unspecified location Nausea Referrals: Alejandra Biggs MD call for appointment this week Patient Instructions: General Instructions Additional Instructions: Use lactulose as needed for constipation, return as needed Med/Other Pt SpecificInfo: Prescription(s) given Scripts Lactulose (Encephalopathy) Liq (Lactulose Liq)19 Gm/15 Ml Soln30 Ml PO Q6HR PRN (CONSTIPATION) 7 Days Prov:Irene Villanueva MD 04/17/16 Disposition: 01 DISCHARGE HOME Condition: Stable Irene Villanueva MD Apr 17, 2016 10:42
[2016-04-17 11:08] LABS: AUTOMATED NEUTROPHIL # 18.2 TH/MM3 (1.8-7.7); BASOPHIL # 0.1 TH/MM3 (0-0.2); BASOPHIL % 0.3 % (0.0-2.0); HEMATOCRIT 33.7 % (39.0-51.0); LYMPH % 2.9 % (9.0-44.0); LYMPHOCYTE # 0.6 TH/MM3 (1.0-4.8); MEAN CELL VOLUME 84.6 FL (80.0-100.0); MEAN CORPUSCULAR HEMOGLOBIN 27.5 PG (27.0-34.0); MEAN CORPUSCULAR HGB CONC 32.5 % (32.0-36.0); MONO % 3.7 % (0.0-8.0); NEUT % 93.1 % (16.0-70.0); PLATELET COUNT 166 TH/MM3 (150-450); RED BLOOD COUNT 3.99 MIL/MM3 (4.50-5.90); RED CELL DISTRIBUTION WIDTH 18.2 % (11.6-17.2); WHITE BLOOD COUNT 19.5 TH/MM3 (4.0-11.0)
[2016-04-17 11:09] LABS: HEMO FLAGS AUTO DIFF
[2016-04-17 11:21] LABS: BICARBONATE 24.3 MEQ/L (21.0-32.0); CALCIUM-PROTEIN CORRECTED 7.6 MG/DL (8.5-10.1); TOTAL BILIRUBIN ADULT 0.5 MG/DL (0.2-1.0)
[2016-04-17] MEDS ORDERED: ASPI1TAB69 PO (11:23)
[2016-04-17] MEDS ORDERED: CELE200C PO (11:24)
[2016-04-17 11:57] LABS: BASOPHILS 1 % (0-2); NEUTROPHIL # MANUAL DIFF 17.9 TH/MM3 (1.8-7.7); PLATELET ESTIMATE SMEAR NORMAL (NORMAL); PLATELET MORPHOLOGY NORMAL (NORMAL); POLYS (SEG NEUTROPHILS) 92 % (16-70); SCAN/DIFF FINAL DIFF MANUAL; WBC DIFF SAMPLE 100
[2016-04-17 11:58] LABS: TEARDROP RBCS 1+ (NORMAL)
--- NOTE | 2016-04-17 11:58 | RADRPT ---
EXAM DATE/TIME: 04/17/2016 11:07 [facility] COMPARISON: CT ABDOMEN & PELVIS W CONTRAST, April 13, 2016, 13:00. CHEST SINGLE AP, April 13, 2016, 12:35. INDICATIONS : Lower quadrant abdominal pain, constipation, and diarrhea. MEDICAL HISTORY : Carcinoma, prostatic. SURGICAL HISTORY : Prostatectomy. Hernia. ENCOUNTER: Initial ACUITY: 1 day PAIN SCORE: 7/10 LOCATION: Bilateral lower quadrant FINDINGS: The examination demonstrates a moderate amount of stool throughout the colon. This would suggest poss ible constipation. No findings to indicate bowel obstruction are evident. There are advanced degenerative changes in lumbar spine. There is a bony sclerosis within the sacrum bilaterally and the iliac wings bilaterally. This would be consistent with the patient's known histor y of metastatic disease. CONCLUSION: 1. Stool-filled colon suggesting constipation. 2. Sclerotic lesions within the osseous structures consistent with metastatic prostate cancer Garcia Solis MD on April 17, 2016 at 11:48 Board Certified Radiologist. This report was verified electronically.
[2016-04-17 12:35] LABS: BLOOD, URINE TRACE (NEG); COMMENT (UR) CULT NOT INDICATED; CULTURE IF INDICATED CULT NOT INDICATED; GLUCOSE,URINE NEG (NEG); KETONE, URINE NEG (NEG); MUCUS URINE FEW /lpf (OCC); NITRITE,URINE NEG (NEG); PH, URINE 6.5 (5.0-8.5); URINE COLOR YELLOW (YELLW/STRAW)
[2016-04-17] MEDS ORDERED: MAGNESIUM CITRATE SOLN 300 ML BTL PO ONE (12:45)
[2016-04-17] MEDS ORDERED: LACT10SO27 PO (12:46)
[2016-04-17] MEDS ORDERED: ONDANSETRON HCL 4 MG/2 ML VIAL IV PUSH ONE (13:15)
[2016-04-17 13:39] VITALS: BP 189/88
== END 2016-04-17 13:41 | disposition home or self-care (01) ==
LOC: NEPE 10:07
DX: K59.00 Constipation, unspecified (principal); R10.9 Unspecified abdominal pain; R11.0 Nausea; E78.00 Pure hypercholesterolemia, unspecified; E11.9 Type 2 diabetes mellitus without complications; I10 Essential (primary) hypertension
CPT/HCPCS: 74000; 80053; 81001; 83690; 85007; 85027; 96374; 99283; J2405